=== PATIENT | female | born 1930 | race Caucasian/White ===

== ENCOUNTER 2018-11-09 14:06 | Emergency (ER) | payer OTHER ==
[2018-11-09] MEDS ORDERED: D50W 25 GM/50 ML SYRINGE IV ONE (14:37)
[2018-11-09 15:00] LABS: Absolute Lymphocytes (CBC) 1.5 K/uL (0.7-4.9); Absolute Monocytes 0.5 K/uL (0.1-1.3); Absolute Neutrophil 4.4 K/uL (1.8-8.0); Basophils % 0.4 % (0-1.3); Eosinophils % 2.1 % (0-4.4); Hematocrit 36.4 % (36.0-45.0); Lymphocytes % 23.1 % (15.3-44.8); MPV 8.1 fL (7.6-11.3); Monocytes % 7.2 % (3.3-12.3); RBC Red Blood Cell Count 4.23 M/uL (3.86-4.86)
[2018-11-09 15:11] LABS: Potassium 4.5 mmol/L (3.5-5.1)
--- NOTE | 2018-11-09 16:08 | RAD REPORT ---
EXAM DESCRIPTION: CT - Head C Spine Cap W Con - 11/09/2018 3:47 pm CLINICAL HISTORY: Trauma, head and neck injury. Chest, abdomen and pelvis pain. left flank echymosis COMPARISON: Abdomen Pelvis W Contrast dated 12/08/2017; Head Brain Wo Cont dated 12/08/2017; HEAD BR AIN W O CONTRAST dated 12/16/2011; HEAD BRAIN W O CONTRAST dated 08/24/2010 TECHNIQUE: CT head without contrast. CT cervical spine without contrast with coronal and sagittal reformatted images. CT chest, abdomen and pelvis with IV contrast (approximately 100 mL nonionic IV contrast) with bailey l and sagittal reformatted images of the spine. All CT scans are performed using dose optimization technique as appropriate and may include automated exposure control or mA/KV adjustment according to patient size. FINDINGS: CT HEAD WITHOUT CONTRAST: No intracranial hemorrhage, hydrocephalus or extra-axial fluid collection. Moderate generalized brain atrophy is present with mild periventricular and deep white matter chronic microvascular ischemic ch anges. No areas of brain edema or midline shift. The paranasal sinuses and mastoids are clear. The calvarium is intact. CT CERVICAL SPINE WITHOUT CONTRAST: No fracture or subluxation. Multilevel degenerative spondylosis of cervical spine is present. The pre vertebral soft tissues are normal in thickness. CT CHEST, ABDOMEN, PELVIS WITH CONTRAST: The lungs are clear.Linear subsegmental atelectasis is present in both posterior lung bases, greater on the left.No pneumothorax or pericardial/pleural fluid. No evidence of intra-abdominal visceral injury, free fluid or free air. Fatty liver. Moderate compression deformity affects the L1 vertebral body, age undetermined. Fracture of the left eighth rib laterally is noted, nondisplaced. Soft tissue swelling is seen in the superficial tissues of the left flank. IMPRESSION: Nondisplaced left lateral eighth rib fracture. Soft tissue swelling and fat stranding se en left flank region. Moderate L1 compression fracture is noted, age undetermined.
--- NOTE | 2018-11-09 16:39 | ER ---
Nurse's Notes [facility] Name: Eileen Carrero Age: 88 yrs Sex: Female : 1930 Arrival Date: 11/09/2018 Time: 14:08 Bed 20 Private MD: Diagnosis: Fracture of one rib, left side;hematoma of left flank Presentation: 11/09 14:08 Presenting complaint: EMS states: was called by pt herself for a fall from a standing hj position and was on the floor for an hour before she was able to call EMS; complaints of lower back pain; on scene, EMS states, pt was Z\T\O x 4, diaphoretic, pale, cold and clammy; no BGL taken, pt is non diabetic; BP- 145/85; EKG showed 1st degree block; presence of L UA bruising from previous fall; denies hitting head or LOC;. Transition of care: patient was not received from another setting of care. Onset of symptoms was November 09, 2018. Risk Assessment: Do you want to hurt yourself or someone else? Patient reports no desire to harm self or others. Initial Sepsis Screen: Does the patient meet any 2 criteria? No. Patient's initial sepsis screen is negative. Does the patient have a suspected source of infection? No. Patient's initial sepsis screen is negative. Care prior to arrival: None. 14:08 Method Of Arrival: EMS: Opp[facility] 14:08 Acuity: LEE 4 hj 14:16 Mechanism of Injury: Fall from standing position. Trauma event details: Injury occurred hj in the [facility], Injury occurred: at home. Injury occurred: November 09, 2018. Triage Assessment: 14:15 General: Appears in no apparent distress. uncomfortable, Behavior is calm, cooperative, hj appropriate for age. Pain: Complains of pain in back. Trauma Activation: Not Applicable Physician: ED Physician; Name: ; Notified At: ; Arrived At: Physician: General Surgeon; Name: ; Notified At: ; Arrived At: Physician: Radiology; Name: ; Notified At: ; Arrived At: Physician: Respiratory; Name: ; Notified At: ; Arrived At: Physician: Lab; Name: ; Notified At: ; Arrived At: Historical: - Allergies: 14:14 Sulfa (Sulfonamide Antibiotics); hj 14:14 Celecoxib; hj - Home Meds: 14:14 aspirin 81 mg Oral chew 1 tab once daily [Active]; estradiol Oral [Active]; Nexium Oral hj [Active]; Potassium Chloride Oral [Active]; Synthroid Oral [Active]; Tramadol Oral [Active]; - PMHx: 14:14 Hypothyroidism; hj - PSHx: 14:14 Unable to obtain; hj - Immunization history:: Adult Immunizations unknown. - Social history:: Smoking status: Patient/guardian denies using tobacco, Patient/guardian denies using alcohol. - Immunization history: Last tetanus immunization: - up to date. - Ebola Screening: : Patient negative for fever greater than or equal to 101.5 degrees Fahrenheit, and additional compatible Ebola Virus Disease symptoms Patient denies exposure to infectious person Patient denies travel to an Ebola-affected area in the 21 days before illness onset. Screenin:15 Abuse screen: Denies threats or abuse. Denies injuries from another. Nutritional hj screening: No deficits noted. Tuberculosis screening: No symptoms or risk factors identified. Fall Risk Fall in past 12 months (25 points). Primary Survey: 14:22 NO uncontrolled hemorrhage observed. A: The patient is alert. Airway: patent, No hj supplemental oxygen in use on arrival. Oral cavity: clear, Trachea midline. Breathing/Chest: Respiratory pattern: regular, Respiratory effort: spontaneous, unlabored, Breath sounds: clear, Chest inspection: symmetrical rise and fall of the chest. Circulation: Cardiac rhythm: sinus rhythm Heart tones present. Pulses: palpable right radial artery, right posterior tibial artery, left radial artery and left posterior tibial artery. Skin color: brusing on the back and lateral abdomen, Skin temperature: warm, dry. Disability Alert. Exposure/Environment: All clothing and personal items were removed. Forensic evidence collection is not deemed to be indicated at this time. Items placed in patient belonging bag. There is no evidence of uncontrolled external bleeding. No obvious injuries are noted at this time. A warming method has been applied: A warm blanket has been provided to the patient. 14:31 Reassessment Airway Airway Patent Oxygen No O2 Oral cavity Clear +Gag reflex Trachea hj Midline Breathing/Chest Circulation Heart rhythm Sinus rhythm Heart tones Present Pulses Palpable Color [place] Temperature Warm Disability Alert. Secondary Survey: 14:30 HEENT: No deficits noted. Gastrointestinal: Abdomen is Bowel sounds present in all hj quadrants. Palpation. : No signs and/or symptoms were reported regarding the genitourinary system. Musculoskeletal: No signs and/or symptoms reported regarding the musculoskeletal system. Assessment: 14:33 Reassessment: called pt's daughter- Deirdre Montoya, [phone]; left a voicemail to call back ED;. 14:59 Reassessment: Spoke with pt's daughter, informed about the current situation. Daughter pc1 provided Pt's son phone number, [phone] [House]/ [phone] [Cell]. 16:42 Reassessment: pt to call someone to pick her up;. hj 17:35 Reassessment: notified [facility] of need for wheelchair van transport back to [facility]. 17:44 Reassessment: Spoke with daughter, informed of discharge plan. Informed that the pt's pc1 cell phone was misplaced within ambulance. Informed daughter that the EMS would return the pt's cell phone to the residence. Informed daughter about discharge prescriptions. Denies any further questions, displayed understanding via speech back. 17:50 Reassessment: pt was educated on use of incentive spirometer;. Vital Signs: 14:16 BP 138 / 65; Resp 18; Pulse Ox 100% on R/A; Weight 90.72 kg; Height 5 ft. 7 in. (170.18 hj cm); 16:30 BP 128 / 67; Pulse 60; Resp 18; Pulse Ox 100% on R/A; hj 17:52 BP 130 / 66; Pulse 62; Resp 18; Pulse Ox 100% on R/A; hj 14:16 Body Mass Index 31.32 (90.72 kg, 170.18 cm) [place] Coma Score: 14:16 Eye Response: spontaneous(4). Verbal Response: oriented(5). Motor Response: obeys hj commands(6). Total: 15. Trauma Score (Adult): 14:16 Eye Response: spontaneous(1); Verbal Response: oriented(1); Motor Response: obeys hj commands(2); Systolic BP: > 89 mm Hg(4); Respiratory Rate: 10 to 29 per min(4); [place] Score: 15; Trauma Score: 12 ED Course: 14:08 Patient arrived in ED. hj 14:12 Triage completed. hj 14:15 Arm band placed on right wrist. hj 14:17 Rik Olivo MD is Attending Physician. ps1 14:24 Erlin Golden RN is Primary Nurse. hj 14:31 Inserted saline lock: 22 gauge in right forearm, using aseptic technique. Patient hj maintains SpO2 saturation greater than 95% on room air. 14:32 Patient has correct armband on for positive identification. Placed in gown. Bed in low hj position. Call light in reach. Side rails up X2. 14:33 Thermoregulation: warm blanket given to patient. hj 15:09 Radiology exam delayed due to lab results not completed at this time. (BUN/Creatinine). vr 15:[address] nj 15:36 CT completed. Patient tolerated procedure well. Patient moved back from CT. vm2 15:47 CT Traumagram (Head C Spine CAP W Con) In Process Unspecified. EDMS 17:50 No provider procedures requiring assistance completed. IV discontinued, intact, hj bleeding controlled, No redness/swelling at site. Pressure dressing applied. Administered Medications: 14:24 Drug: D50W 25 ml Route: IVP; Site: right forearm; hj 14:41 Follow up: Response: No adverse reaction hj Point of Care Testing: Blood Glucose: 14:16 Blood Glucose: 54 mg/dL; hj 15:15 Blood Glucose: 187 mg/dL; pc1 Ranges: Intake: 17:53 PO: 100ml (Water); Total: 100ml. hj Output: 17:53 Urine: 200ml (Voided); Total: 200ml. hj Outcome: 16:38 Discharge ordered by . ps1 17:51 Attestation : i agree with notes of SN Loki. hj 17:51 Discharged to home ambulatory, via ambulance. 17:51 Condition: stable 17:51 Discharge instructions given to patient, Instructed on discharge instructions, follow up and referral plans. medication usage, Demonstrated understanding of instructions, follow-up care, medications, Prescriptions given X 2. 17:53 Patient's length of stay in the Emergency Department was greater than 2 hours. hj 18:01 Patient left the ED. hj Signatures: Dispatcher [employer] EDMS Laurence Steele RN RN iw Davis, Victoria vr Erlin Golden RN RN hj Jordan, Nathan nj McGuire, Victoria 2 Olivo, Rik, MD MD ps1 Anglin, Sanchez pc1
--- NOTE | 2018-11-09 16:39 | EDPHYS ---
Physician Documentation [facility] Name: Eileen Carrero Age: 88 yrs Sex: Female : 1930 Arrival Date: 11/09/2018 Time: 14:08 Bed 20 Private MD: ED Physician Rik Olivo Historical: - Allergies: 11/09 14:14 Sulfa (Sulfonamide Antibiotics); hj 14:14 Celecoxib; hj - Home Meds: 14:14 aspirin 81 mg Oral chew 1 tab once daily [Active]; estradiol Oral [Active]; Nexium Oral hj [Active]; Potassium Chloride Oral [Active]; Synthroid Oral [Active]; Tramadol Oral [Active]; - PMHx: 14:14 Hypothyroidism; hj - PSHx: 14:14 Unable to obtain; hj - Immunization history:: Adult Immunizations unknown. - Social history:: Smoking status: Patient/guardian denies using tobacco, Patient/guardian denies using alcohol. - Immunization history: Last tetanus immunization: - up to date. - Ebola Screening: : Patient negative for fever greater than or equal to 101.5 degrees Fahrenheit, and additional compatible Ebola Virus Disease symptoms Patient denies exposure to infectious person Patient denies travel to an Ebola-affected area in the 21 days before illness onset. Vital Signs: 14:16 BP 138 / 65; Resp 18; Pulse Ox 100% on R/A; Weight 90.72 kg; Height 5 ft. 7 in. (170.18 hj cm); 16:30 BP 128 / 67; Pulse 60; Resp 18; Pulse Ox 100% on R/A; hj 17:52 BP 130 / 66; Pulse 62; Resp 18; Pulse Ox 100% on R/A; hj 14:16 Body Mass Index 31.32 (90.72 kg, 170.18 cm) hj Abe Coma Score: 14:16 Eye Response: spontaneous(4). Verbal Response: oriented(5). Motor Response: obeys hj commands(6). Total: 15. Trauma Score (Adult): 14:16 Eye Response: spontaneous(1); Verbal Response: oriented(1); Motor Response: obeys hj commands(2); Systolic BP: > 89 mm Hg(4); Respiratory Rate: 10 to 29 per min(4); Abe Score: 15; Trauma Score: 12 MDM: 14:23 Patient medically screened. [facility] 11/09 14:22 Order name: Basic Metabolic Panel; Complete Time: 15:12 [facility] 11/09 14:22 Order name: CBC with Diff; Complete Time: 15:08 [facility] 11/09 14:22 Order name: CT Traumagram (Head C Spine CAP W Con); Complete Time: 16:13 [facility] 11/09 14:22 Order name: Creatinine for Radiology; Complete Time: 15:25 [facility] 11/09 14:22 Order name: Type And Screen; Complete Time: 16:01 [facility] 11/09 17:49 Order name: INCENTIVE SPIROMETRY 11/09 14:22 Order name: Labs collected and sent; Complete Time: 14:41 ps1 Administered Medications: 14:24 Drug: D50W 25 ml Route: IVP; Site: right forearm; 14:41 Follow up: Response: No adverse reaction Point of Care Testing: Blood Glucose: 14:16 Blood Glucose: 54 mg/dL; 15:15 Blood Glucose: 187 mg/dL; pc1 Ranges: Critical Glucose Levels:Adult <50 mg/dl or >400 mg/dl <40 mg/dl or >180 mg/dl Disposition: 11/09/18 16:38 Discharged to Home. Impression: Fracture of one rib, left side, hematoma of left flank. - Condition is Stable. - Discharge Instructions: Rib Fracture, [id number]. - Prescriptions for Anaprox DS 550 mg Oral Tablet - take 1 tablet by ORAL route every 12 hours As needed; 20 tablet. Robaxin 500 mg Oral Tablet - take 2 tablet by ORAL route every 6 hours As needed; 40 tablet. - Medication Reconciliation Form, Thank You Letter, Antibiotic Education, Prescription Opioid Use form. - Follow up: Private Physician; When: As needed; Reason: Recheck today's complaints. Follow up: Emergency Department; When: As needed; Reason: Worsening of condition. - Problem is new. - Symptoms are unchanged. Addendum: 11/24/2018 09:12 Addendum: 88 y/o F presenting w FFSH. Patient states that she has left rib pain. p s1 Patient states she tripped and fell. Pain rated as moderate. No obvious deformity but has ecchymosis of the flank. ROS: No fever, chills, NVD, CP, SOB, ABD pain. Has left rib pain. No leg pain or back pain. PHY: NCAT, PERRL, EOMi, CTAB, RRR, Abd SNT. Left flank pain with palpation and ecchymosis. Pain over ribs. Normal extremities. POC: Traumagram. Pain control. RIb fx on CT. Incentive Spirometry. Home with anaprox and robaxin. Stable. . Signatures: Dispatcher [employer] EDMS Erlin Golden RN RN hj Rik Olivo MD MD ps1 Corrections: (The following items were deleted from the chart) 11/09 18:01 16:38 11/09/2018 16:38 Discharged to Home. Impression: Fracture of one rib, left side; hj hematoma of left flank. Condition is Stable. Forms are Medication Reconciliation Form, Thank You Letter, Antibiotic Education, Prescription Opioid Use. Follow up: Private Physician; When: As needed; Reason: Recheck today's complaints. Follow up: Emergency Department; When: As needed; Reason: Worsening of condition. Problem is new. Symptoms are unchanged. ps1 11/24 09:20 09:12 Addendum: 88 y/o F presenting w FFSH. Patient states that she has left rib pain. ps1 . ps1
[2018-11-09 18:55] VITALS: O2SAT 100
[2018-11-09 18:57] VITALS: BP 130/66
== END 2018-11-09 18:01 | disposition home or self-care (01) ==
LOC: ER 14:06
DX: S22.32XA Fracture of one rib, left side, initial encounter for closed fracture (principal); S30.1XXA Contusion of abdominal wall, initial encounter; W01.0XXA Fall on same level from slipping, tripping and stumbling without subsequent striking against object, initial encounter; Y93.9 Activity, unspecified; Y92.9 Unspecified place or not applicable; E03.9 Hypothyroidism, unspecified; Z79.82 Long term (current) use of aspirin; Z88.1 Allergy status to other antibiotic agents; Z88.2 Allergy status to sulfonamides
CPT/HCPCS: 85025; 80048; 36415; 86900; 86850; 86901; 82962 ×2; 70450; 72125; 71260; 74177; 96374; 99285; Q9967

== ENCOUNTER 2018-12-18 14:42 | Emergency (ER) | payer OTHER ==
--- NOTE | 2018-12-18 15:41 | RAD REPORT ---
EXAM DESCRIPTION: RAD - Ankle Right 3 View - 12/18/2018 3:06 pm CLINICAL HISTORY: fall, foot pain COMPARISON: None FINDINGS: Right ankle and right foot -multiple projections are submitted Soft tissue swelling is seen along the lateral margin of the foot and ankle. No fractures appreciated .
--- NOTE | 2018-12-18 16:35 | RAD REPORT ---
EXAM DESCRIPTION: US - Extremity Venous Uni Ltd - 12/18/2018 4:24 pm CLINICAL HISTORY: SWELLING Leg swelling and edema. COMPARISON: EXT VENOUS UNI LTD dated 05/30/2009 FINDINGS: Right lower extremity venous system was interrogated with Doppler technique. Normal flow, compressibility and augmentation was noted. There is no DVT present. IMPRESSION: No evidence of right lower extremity deep venous thrombosis.
--- NOTE | 2018-12-18 17:05 | EDPHYS ---
Physician Documentation [facility] Name: Eileen Carrero Age: 88 yrs Sex: Female : 1930 Arrival Date: 12/18/2018 Time: 14:08 Bed 13 Private MD: ED Physician Dom Koo HPI: 12/18 14:33 This 88 yrs old Female presents to ER via EMS with complaints of Foot Pain. jmm 14:33 The patient presents with an injury, pain. Onset: The symptoms/episode began/occurred jmm gradually, 2 day(s) ago. This is an 88 year old female with a history of hlp, depression, htn, that presents to the ED with complaints of pain to her right lower leg, foot and ankle. Patient states she fell 1 month ago on her left side. Denies other known injury. . Historical: - Allergies: 14:15 Celecoxib; ph 14:15 Sulfa (Sulfonamide Antibiotics); ph 14:15 Tape; ph - Home Meds: 18:40 aspirin 81 mg Oral chew 1 tab once daily [Active]; estradiol Oral [Active]; Nexium Oral ph [Active]; Potassium Chloride Oral [Active]; Synthroid Oral [Active]; Tramadol Oral [Active]; - PMHx: 14:15 Hypothyroidism; Depression; Hyperlipidemia; Hypertension; Crohn's; Arthritis; ph - PSHx: 18:40 Knee surgery; ph - Immunization history:: Adult Immunizations unknown. - Social history:: Smoking status: Patient/guardian denies using tobacco. - Ebola Screening: : No symptoms or risks identified at this time. ROS: 14:33 Constitutional: Negative for fever, chills, and weight loss, Cardiovascular: Negative jmm for chest pain, palpitations, and edema, Respiratory: Negative for shortness of breath, cough, wheezing, and pleuritic chest pain. 14:33 MS/extremity: Positive for pain, swelling. 14:33 All other systems are negative. Exam: 14:33 Constitutional: This is a well developed, well nourished patient who is awake, alert, jmm and in no acute distress. Head/Face: atraumatic. Eyes: EOMI, no conjunctival erythema appreciated ENT: Moist Mucus Membranes Neck: Trachea midline, Supple Cardiovascular: Regular rate and rhythm. No edema appreciated Respiratory: Normal respirations, no respiratory distress appreciated Abdomen/GI: Non distended, soft 14:33 Musculoskeletal/extremity: swelling and pain noted to the right lateral ankle and at the base of the right fifth metatarsal, full dorsalis pulse, NVI. 14:33 Skin: Appearance: Color: normal in color. 14:33 Neuro: Orientation: is normal, Mentation: is normal, Memory: is normal. 14:33 Psych: Behavior/mood is pleasant, cooperative. Vital Signs: 14:12 BP 103 / 78; Pulse 70; Resp 18; Temp 97.7; Pulse Ox 97% on R/A; Weight 92.99 kg; Height ph 5 ft. 7 in. (170.18 cm); Pain 5/10; 15:00 BP 124 / 68; Pulse 68; Resp 18; Pulse Ox 98% on R/A; ph 16:15 BP 133 / 67; Pulse 71; Resp 16; Pulse Ox 98% on R/A; ph 18:36 BP 134 / 66; Pulse 65; Resp 18; Pulse Ox 100% on R/A; ph 19:05 BP 110 / 81; Pulse 73; Resp 16; Pulse Ox 98% on R/A; jb4 20:00 BP 134 / 70; Pulse 65; Resp 16; Pulse Ox 100% on R/A; jb4 20:30 BP 148 / 57; Pulse 66; Resp 16; Pulse Ox 100% on R/A; jb4 14:12 Body Mass Index 32.11 (92.99 kg, 170.18 cm) ph MDM: 14:33 Patient medically screened. [facility] 17:02 Data reviewed: vital signs, nurses notes. Counseling: I had a detailed discussion with stacey the patient and/or guardian regarding: the historical points, exam findings, and any diagnostic results supporting the discharge/admit diagnosis, radiology results, the need for outpatient follow up, to return to the emergency department if symptoms worsen or persist or if there are any questions or concerns that arise at home. ED course: I discussed the patient with her daughter whom stated noticing swelling after a rehabilitation session due to the previous fall injury. Patient may be favoring the left side. Symptoms appear consistent with ankle sprain. patient will be given follow up with ortho for further evaluation. . 12/18 14:34 Order name: Foot Right 3 View XRAY [facility] 12/18 14:34 Order name: Ankle Right 3 View XRAY; Complete Time: 15:44 [facility] 12/18 15:45 Order name: US Extremity Venous Unilateral Ltd; Complete Time: 17:02 [facility] 12/18 17:02 Order name: [place] wrap-joint; Complete Time: 20:13 [facility] Administered Medications: 18:32 Not Given (Other Intervention Used): [place] 5 mg-325 mg 1 tabs PO once ph 18:32 Drug: morphine 2 mg Route: IVP; Site: right forearm; ph 19:32 Follow up: Response: No adverse reaction; Pain is decreased ph 18:32 Drug: Zofran 4 mg Route: IVP; Site: right forearm; ph 19:32 Follow up: Response: No adverse reaction ph Disposition: 12/18/18 17:05 Discharged to Home. Impression: Sprain of ankle. - Condition is Stable. - Discharge Instructions: Ankle Sprain. - Prescriptions for Tylenol- Codeine #3 300-30 mg Oral Tablet - take 1 tablet by ORAL route every 6 hours As needed; 12 tablet. - Medication Reconciliation Form, Thank You Letter, Antibiotic Education, Prescription Opioid Use form. - Follow up: Private Physician; When: 2 - 3 days; Reason: Recheck today's complaints, Continuance of care, Re-evaluation by your physician. Follow up: José Miguel Lal MD; When: 1 - 2 days; Reason: Recheck today's complaints, Continuance of care, Re-evaluation by your physician. Addendum: 12/19/2018 22:56 Co-signature as Attending Physician, Dom Koo MD. r n Signatures: Dispatcher [employer] EDMS Gautam Sorensen PA PA [facility] Dom Koo MD MD rn Hall, Patricia, RN RN ph Bryson, James, RN RN jb4 Corrections: (The following items were deleted from the chart) 12/18 20:51 17:05 12/18/2018 17:05 Discharged to Home. Impression: Sprain of ankle. Condition is jb4 Stable. Forms are Medication Reconciliation Form, Thank You Letter, Antibiotic Education, Prescription Opioid Use. Follow up: Private Physician; When: 2 - 3 days; Reason: Recheck today's complaints, Continuance of care, Re-evaluation by your physician. Follow up: Dr. José Miguel Lal; When: 1 - 2 days; Reason: Recheck today's complaints, Continuance of care, Re-evaluation by your physician. stacey
--- NOTE | 2018-12-18 17:05 | ER ---
Nurse's Notes [facility] Name: Eileen Carrero Age: 88 yrs Sex: Female : 1930 Arrival Date: 12/18/2018 Time: 14:08 Bed 13 Private MD: Diagnosis: Sprain of ankle Presentation: 12/18 14:08 Presenting complaint: EMS states: C/O pain and swelling to R ankle, reports falling on ph November 14, states, " I fell mainly on my L side and I got all of that checked out. I had a little pain in my R ankle after the fall but didn't get it checked out then." Pt reports that pain intensified starting Fri and that she is unable to bear weight on R foot. 1 gram IV Tylenol given, pain decreased from 10/10 down to 5/10. Transition of care: patient was not received from another setting of care. Onset of symptoms was December 18, 2018. Risk Assessment: Do you want to hurt yourself or someone else? Patient reports no desire to harm self or others. Initial Sepsis Screen: Does the patient meet any 2 criteria? No. Patient's initial sepsis screen is negative. Does the patient have a suspected source of infection? No. Patient's initial sepsis screen is negative. Care prior to arrival: Medication(s) given: Tylenol, 1000 mg, IVP IV initiated. 20 GA, in the right forearm. 14:08 Method Of Arrival: EMS: [facility] ph 14:08 Acuity: LEE 4 ph Historical: - Allergies: 14:15 Celecoxib; ph 14:15 Sulfa (Sulfonamide Antibiotics); ph 14:15 Tape; ph - Home Meds: 18:40 aspirin 81 mg Oral chew 1 tab once daily [Active]; estradiol Oral [Active]; Nexium Oral ph [Active]; Potassium Chloride Oral [Active]; Synthroid Oral [Active]; Tramadol Oral [Active]; - PMHx: 14:15 Hypothyroidism; Depression; Hyperlipidemia; Hypertension; Crohn's; Arthritis; ph - PSHx: 18:40 Knee surgery; ph - Immunization history:: Adult Immunizations unknown. - Social history:: Smoking status: Patient/guardian denies using tobacco. - Ebola Screening: : No symptoms or risks identified at this time. Screenin:32 Abuse screen: Denies threats or abuse. Denies injuries from another. Nutritional ph screening: No deficits noted. Tuberculosis screening: No symptoms or risk factors identified. Fall Risk Fall in past 12 months (25 points). No secondary diagnosis (0 pts). No IV (0 pts). Ambulatory Aid- None/Bed Rest/Nurse Assist (0 pts). Gait- Impaired (20 pts.). Mental Status- Oriented to own ability (0 pts). Total Vogel Fall Scale indicates High Risk Score (45 or more points). Fall prevention measures have been instituted. Side Rails Up X 2 Frequent Obs/Assessments Occuring As available patient and family educated on Fall Prevention Program and Strategies. Assessment: 14:30 General: Appears in no apparent distress. comfortable, obese, well groomed, Behavior is ph calm, cooperative, appropriate for age, Denies fever, feeling ill. Pain: Complains of pain in right ankle. Neuro: Level of Consciousness is awake, alert, obeys commands, Oriented to person, place, time, situation. Cardiovascular: Capillary refill < 3 seconds in bilateral fingers toes Patient's skin is warm and dry. Pulses are palpable in right dorsalis pedis artery and left dorsalis pedis artery. Respiratory: Airway is patent Respiratory effort is even, unlabored, Respiratory pattern is regular, symmetrical. GI: No signs and/or symptoms were reported involving the gastrointestinal system. Derm: Skin is intact, Skin is pink, warm \\T\\ dry. Musculoskeletal: Circulation, motion, and sensation intact. Swelling present in right ankle. 16:34 Reassessment: Patient appears in no apparent distress at this time. Patient and/or ph family updated on plan of care and expected duration. Pain level reassessed. Patient is alert, oriented x 3, equal unlabored respirations, skin warm/dry/pink. ERP at bedside to speak w/ pt. 17:30 Reassessment: Patient appears in no apparent distress at this time. Patient and/or ph family updated on plan of care and expected duration. Pain level reassessed. Patient is alert, oriented x 3, equal unlabored respirations, skin warm/dry/pink. Pt resting quietly at this time, spoke to daughter on phone, states, " I am coming from [place] now but I will be there to get her." D/C pending ride home, will continue to monitor. 18:33 Reassessment: Patient appears in no apparent distress at this time. Patient and/or ph family updated on plan of care and expected duration. Pain level reassessed. Patient is alert, oriented x 3, equal unlabored respirations, skin warm/dry/pink. Pt c/o "pain all over" states, " This bed is just so uncomfortable." Rates pain 10/ Daughter on phone states that she will be her at approx 2000 to bean picker pt, ERP notified of pain level, see MAR. 18:50 Reassessment: Patient appears in no apparent distress at this time. Patient and/or ph family updated on plan of care and expected duration. Pain level reassessed. Pt reports that pain hasimprovedto5/10 after IV pain medication, assisted pt to bedside commode. 19:05 Reassessment: Patient appears in no apparent distress at this time. Patient and/or jb4 family updated on plan of care and expected duration. Pain level reassessed. Patient is alert, oriented x 3, equal unlabored respirations, skin warm/dry/pink. 20:05 Reassessment: Patient appears in no apparent distress at this time. Patient and/or jb4 family updated on plan of care and expected duration. Pain level reassessed. PT is resting with eyes closed, respirations are even and unlabored. 20:50 Reassessment: Patient appears in no apparent distress at this time. Patient and/or jb4 family updated on plan of care and expected duration. Pain level reassessed. Patient is alert, oriented x 3, equal unlabored respirations, skin warm/dry/pink. PT left ED via wheelchair, left with daughter, daughter verbalized understanding of d/c and follow up instructions. Denies questions or concerns. Vital Signs: 14:12 BP 103 / 78; Pulse 70; Resp 18; Temp 97.7; Pulse Ox 97% on R/A; Weight 92.99 kg; Height ph 5 ft. 7 in. (170.18 cm); Pain 5/10; 15:00 BP 124 / 68; Pulse 68; Resp 18; Pulse Ox 98% on R/A; ph 16:15 BP 133 / 67; Pulse 71; Resp 16; Pulse Ox 98% on R/A; ph 18:36 BP 134 / 66; Pulse 65; Resp 18; Pulse Ox 100% on R/A; ph 19:05 BP 110 / 81; Pulse 73; Resp 16; Pulse Ox 98% on R/A; jb4 20:00 BP 134 / 70; Pulse 65; Resp 16; Pulse Ox 100% on R/A; jb4 20:30 BP 148 / 57; Pulse 66; Resp 16; Pulse Ox 100% on R/A; jb4 14:12 Body Mass Index 32.11 (92.99 kg, 170.18 cm) ph ED Course: 14:08 Patient arrived in ED. ph 14:10 Gautam Sorensen PA is PHCP. jmm 14:10 Dom Koo MD is Attending Physician. jmm 14:12 Triage completed. ph 14:15 Arm band placed on Patient placed in an exam room, on a stretcher, on pulse oximetry. ph 14:30 Patient has correct armband on for positive identification. Placed in gown. Bed in low ph position. Call light in reach. Side rails up X2. pvc monitor on. Pulse ox on. NIBP on. Door closed. Noise minimized. Warm blanket given. 15:06 Foot Right 3 View XRAY In Process Unspecified. EDMS 15:06 Ankle Right 3 View XRAY In Process Unspecified. EDMS 16:07 Tracee Schaefer, RN is Primary Nurse. ph 16:24 US Extremity Venous Unilateral Ltd In Process Unspecified. EDMS 16:35 No provider procedures requiring assistance completed. Patient did not have IV access ph during this emergency room visit. 17:04 José Miguel Lal MD is Referral Physician. jm Administered Medications: 18:32 Not Given (Other Intervention Used): [place] 5 mg-325 mg 1 tabs PO once ph 18:32 Drug: morphine 2 mg Route: IVP; Site: right forearm; ph 19:32 Follow up: Response: No adverse reaction; Pain is decreased ph 18:32 Drug: Zofran 4 mg Route: IVP; Site: right forearm; ph 19:32 Follow up: Response: No adverse reaction ph Outcome: 17:05 Discharge ordered by . jm 20:50 Discharged to home via wheelchair, with family. [facility] 20:50 Condition: stable 20:50 Discharge instructions given to patient, family, Instructed on discharge instructions, follow up and referral plans. medication usage, Demonstrated understanding of instructions, follow-up care, medications, Prescriptions given X 1. 20:51 Patient left the ED. jb4 Signatures: Dispatcher [employer] EDMS Gautam Sorensen PA PA jmm Hall, Patricia RN RN Jamar Escalona RN RN jb4
[2018-12-18] MEDS ORDERED: MORPHINE 2 MG/ML SYR ONE (18:27)
[2018-12-18] MEDS ORDERED: ONDANSETRON 4 MG/2 ML VIAL ONE (18:27)
[2018-12-18 21:25] VITALS: O2SAT 100
[2018-12-18 21:27] VITALS: BP 148/57
--- NOTE | 2018-12-21 12:40 | RAD REPORT ---
EXAM DESCRIPTION: RAD - Foot Right 3 View - 12/18/2018 3:06 pm CLINICAL HISTORY: Fall, foot pain COMPARISON: None FINDINGS: Right ankle and right foot -multiple projections are submitted Soft tissue swelling is seen along the lateral margin of the foot and ankle. No fractures appreciated .
== END 2018-12-18 20:51 | disposition home or self-care (01) ==
LOC: ER 14:42
DX: S93.401A Sprain of unspecified ligament of right ankle, initial encounter (principal); W19.XXXA Unspecified fall, initial encounter; E03.9 Hypothyroidism, unspecified; E78.5 Hyperlipidemia, unspecified; I10 Essential (primary) hypertension; F32.9 Major depressive disorder, single episode, unspecified; K50.90 Crohn's disease, unspecified, without complications; Z88.6 Allergy status to analgesic agent; Z88.2 Allergy status to sulfonamides; Z79.82 Long term (current) use of aspirin
CPT/HCPCS: 73630; 73610; 93971; 96375; 96374; 99284; J2270; J2405

== ENCOUNTER 2019-10-26 12:47 | Inpatient (IN) | payer OTHER ==
--- OUTSIDE RECORDS SUMMARY | 2019-10-26 12:49 | XMS REPORT | Summary of Care ---
:[address] [facility] Address [address] [place] [address] Care Team Providers Name Role Phone Juan R Bartlett Primary Care Provider Reason for Visit Auth/Cert Status Reason Specialty Diagnoses / Referred By Referred To Procedures Contact Contact Echocardiograph Diagnoses Shortness of breath R06.02 [facility] Echo Cardio Procedures NM CV STRS TST XERS&/OR RX CONT ECG W/O I&R NM CARDIAC STRESS TST,TRACING ONLY NM CARDIAC STRESS TST,INTERP/REPT ONLY Lab-Pt [address] [place] [address] Encounter Details Date Type Department Care Team Description 03/30/2019 Hospital Encounter [facility] Hernesto Badillo MD [address] [place] [address] [facility] Cardio Echo [address] [place] [address] Allergies Active Allergy Reactions Severity Noted Date Comments Sulfa (Sulfonamide Antibiotics) Unknown - See comments 02/25/2019 documented as of this encounter (statuses as of 03/31/2019) Medications Medication Sig Dispensed Refills Start Date End Date Status donepezil 10 mg tablet Take 10 mg by 0 Active mouth 2 (two) times daily. esomeprazole 40 mg Take 40 mg by 0 Active capsule mouth 2 (two) times daily. levothyroxine 88 mcg Take 88 mcg by 0 Active tablet mouth every morning. buPROPion XL Take 300 mg by 0 Active (WELLBUTRIN XL) 300 mg mouth daily. 24 hr tablet ezetimibe 10 mg tablet Take 10 mg by 0 Active mouth daily. furosemide 20 mg tablet Take 20 mg by 0 Active mouth daily. traMADOL 50 mg tablet Take 50 mg by 0 Active mouth every 6 (six) hours as needed. KCL 10 mEq tablet Take 10 mEq by 0 Active mouth 2 (two) times daily. loratadine 10 mg tablet Take 10 mg by 0 Active mouth daily. fluticasone propionate Use in each 0 Active 50 mcg/actuation nasal nostril daily. spray amitriptyline 100 mg Take 50 mg by 0 Active tablet mouth at bedtime. mesalamine 1.2 gram EC Take 2 tablets by 0 03/02/2019 Active tablet mouth daily with breakfast. telmisartan 40 mg Take 1 tablet by 0 03/02/2019 Active tablet mouth daily. documented as of this encounter (statuses as of 03/31/2019) Active Problems Not on filedocumented as of this encounter (statuses as of 03/31/2019) Social History Tobacco Use Types Packs/Day Years Used Date Never Smoker Smokeless Tobacco: Never Used Alcohol Use Drinks/Week oz/Week Comments Never Alcohol Habits Answer Date Recorded How often do you have a drink containing alcohol? Never 02/25/2019 How many drinks containing alcohol do you have on a typical Not asked day when you are drinking? How often do you have six or more drinks on one occasion? Not asked Sex Assigned at Date Recorded Not on file Job Start Date Occupation Industry Not on file Not on file Not on file Travel History Travel Start Travel End No recent travel history available. documented as of this encounter Last Filed Vital Signs Not on filedocumented in this encounter Plan of Treatment Date Type Specialty Care Team Description 04/28/2019 Office Visit Cardiology Hernesto Badillo MD [address] [place] [address] [address] [place] [address] [phone] Health Maintenance Due Date Last Done Comments DTaP,Tdap,and Td Vaccines (1 - Tdap) 1949 Zoster Recombinant Vaccine (SHINGRIX) (1 of 2) 1982 Medicare Wellness Visit 1997 Osteoporosis Screening 1997 PNEUMOCOCCAL VACCINES 65+ (1 of 2 - PCV13) 1997 INFLUENZA VACCINE 04/18/2019 documented as of this encounter Results Not on filedocumented in this encounter Administered Medications Medication Order MAR Action Action Date Dose Rate Site Regadenoson (LEXISCAN) injection Given 03/30/2019 11:33 AM CDT 0.4 mg 0.4 mg 0.4 mg, IV Push, ONCE, 1 dose, 03/30/19 at 1145, Routine, crew team member approving Restricted medication: HERNESTO BADILLO documented in this encounter Insurance Payer Benefit Plan / Subscriber ID Effective Phone Address Type Group Dates [facility] [id number] 2017-Pres Medicare HEALTHCARE - HEALTHCARE ent Adv HMO MANAGED DUAL COMPLETE MEDICARE O [facility] MEDICAID OF xxxxxxxxx 2019-Pres [phone] [place] ent [id number] [place] [address] documented as of this encounter
--- OUTSIDE RECORDS SUMMARY | 2019-10-26 12:49 | XMS REPORT | Summary of Care ---
:1930 Author Organization [facility] - Health Address [address] [place] [address] Care Team Providers Name Role Phone Pcp, Patient Does Not Have A Primary Care Provider Encounter Details Date Type Department Care Team Description 03/30/2019 Orders Only [facility] Doctor Unassigned, No [address] [facility] [place] [address] [address] [place] [address] Allergies Active Allergy Reactions Severity Noted Date Comments Sulfa (Sulfonamide Antibiotics) Unknown - See comments 02/25/2019 documented as of this encounter (statuses as of 03/30/2019) Medications Medication Sig Dispensed Refills Start Date [...] as of this encounter (statuses as of 03/30/2019) Active Problems Not on filedocumented as of this encounter (statuses as of 03/30/2019) Social History Tobacco Use Types Packs/Day Years [...] Treatment Date Type Specialty Care Team Description 03/30/2019 Appointment Radiology Roshan Siu MD [address] [place] [address] [phone] 03/30/2019 Appointment Radiology Roshan Siu MD [address] [place] [address] [phone] 03/30/2019 Appointment Radiology Roshan Siu MD [address] [place] [address] 03/30/2019 Appointment Radiology Roshan Siu MD [address] [place] [address] 04/28/2019 Office Visit Cardiology Roshan Siu MD [address] [place] [address] [phone] Health Maintenance Due Date Last Done Comments DTaP,Tdap,and Td Vaccines (1 - Tdap) 1949 Zoster Recombinant Vaccine (SHINGRIX) (1 of 2) 1982 Medicare Wellness Visit 1997 Osteoporosis Screening 1997 PNEUMOCOCCAL VACCINES 65+ (1 of 2 - PCV13) 1997 INFLUENZA VACCINE 04/18/2019 documented as of this encounter Procedures Procedure Name Priority Date/Time Associated Diagnosis Comments ASSIGNMENT OF BENEFITS Routine 03/30/2019 9:06 AM CDT documented in this encounter Results Not on filedocumented in this encounter Insurance Payer Benefit Plan / Subscriber ID Effective Phone Address Type Group Dates [facility] [id number] 2017-Pres Medicare HEALTHCARE - HEALTHCARE ent Adv HMO MANAGED DUAL COMPLETE MEDICARE HMO [facility] MEDICAID OF xxxxxxxxx 2019-Pres [phone] [place] ent [phone] [id number] [place] [address] documented as of this encounter
--- OUTSIDE RECORDS SUMMARY | 2019-10-26 12:49 | XMS REPORT ---
:1930 Author Organization [facility] Address [address] [place] [address] Dr. Alanis [address] [place] [address] Care Team Providers Name Role Phone Unavailable Unavailable Unavailable Problems This patient has no known problems. Allergies, Adverse Reactions, Alerts This patient has no known allergies or adverse reactions. Medications This patient has no known medications.
--- OUTSIDE RECORDS SUMMARY | 2019-10-26 12:50 | XMS REPORT | Summary of Care ---
:1930 Author Organization [facility] Address [address] [place] [address] Care Team Providers Name Role Phone Tri Juan R Yaritza Primary Care Provider Reason for Visit Auth/Cert Status Reason Specialty Diagnoses / Referred By Referred To Procedures Contact Contact Echocardiograph Diagnoses Shortness of breath R06.02 [facility] Echo Cardio Procedures [place] CV STRS TST XERS&/OR RX CONT ECG W/O I&R [place] CARDIAC STRESS TST,TRACING ONLY [place] CARDIAC STRESS TST,INTERP/REPT ONLY Lab-Pt [address] [place] [address] Encounter Details Date Type Department Care Team Description 03/30/2019 Hospital Encounter [facility] Roshan Siu MD Arrived [address] [place] [address] [address] [place] [address] [place] [address] Allergies Active Allergy Reactions Severity Noted Date [...] Care Team Description 04/28/2019 Office Visit Cardiology Roshan Siu MD [address] [place] [address] [address] [place], [place] [phone] Health Maintenance Due Date Last Done Comments DTaP,Tdap,and Td Vaccines (1 - Tdap) 1949 Zoster Recombinant Vaccine (SHINGRIX) (1 of 2) 1982 Medicare Wellness Visit 1997 Osteoporosis Screening 1997 PNEUMOCOCCAL VACCINES 65+ (1 of 2 - PCV13) 1997 INFLUENZA VACCINE 04/18/2019 documented as of this encounter Procedures Procedure Name Priority Date/Time Associated Comments Diagnosis NM MYOCARDIUM Routine 03/30/2019 12:36 PM SOB (shortness of Results for this PERFUSION STRESS AND CDT breath) procedure are in REST the results section. documented in this encounter Results NM MYOCARDIUM PERFUSION STRESS AND REST (03/30/2019 12:36 PM CDT) Specimen Impressions Performed At Impression: PACS/VR/DOSE Normal myocardial perfusion scan with preserved ejection fraction and normal wall thickening. I was present for the stress portion. Narrative Performed At * * * * * * * * ORIGINAL REPORT * * * * * * * * PACS/VR/DOSE Pharmacological myocardial perfusion imaging report Type: Technetium 99 labeled tetrofosmin rest/stress single isotope SPECT imaging with Regadenoson pharmacological stress and gated SPECT imaging. Indication: dyspnea Clinical history: HTN and HLD Procedure: Pharmacological stress test was performed with a bolus dose of 0.4 mg of Regadenoson. Gated myocardial perfusion imaging was performed at rest following the injection of 16.5 millicuries of technetium labeled tetrofosmin and post stress following the injection of 43.8 millicuries of technetium labeled tetrofosmin. Findings: The overall quality of the study was good. Stress EKG showed no inducible ischemia, reported separately. SPECT images demonstrate homogeneous tracer distribution throughout the myocardium. Gated SPECT images demonstrate normal wall motion and myocardial thickening. Left ventricular ejection fraction was calculated to be 74 at rest and85 post-stress. Procedure Note Joann, Radiant Results Inft User - 03/30/2019 6:04 PM CDT * * * * * * * * ORIGINAL REPORT * * * * * * * * Pharmacological myocardial perfusion imaging report Type: Technetium 99 labeled tetrofosmin rest/stress single isotope SPECT imaging with Regadenoson pharmacological stress and gated SPECT imaging. Indication: dyspnea Clinical history: HTN and HLD Procedure: Pharmacological stress test was performed with a bolus dose of 0.4 mg of Regadenoson. Gated myocardial perfusion imaging was performed at rest following the injection of 16.5 millicuries of technetium labeled tetrofosmin and post stress following the injection of 43.8 millicuries of technetium labeled tetrofosmin. Findings: The overall quality of the study was good. Stress EKG showed no inducible ischemia, reported separately. SPECT images demonstrate homogeneous tracer distribution throughout the myocardium. Gated SPECT images demonstrate normal wall motion and myocardial thickening. Left ventricular ejection fraction was calculated to be 74 at rest and 85 post-stress. IMPRESSION Impression: Normal myocardial perfusion scan with preserved ejection fraction and normal wall thickening. I was present for the stress portion. Performing Organization Address City/State/Zipcode Phone Number PACS/VR/DOSE documented in this encounter Insurance Payer Benefit Plan / Subscriber ID Effective Phone Address Type Group Dates [facility] [id number] 2017-Pres Medicare HEALTHCARE - HEALTHCARE ent Adv HMO MANAGED DUAL COMPLETE MEDICARE [facility]MO [facility] MEDICA[facility] OF xxxxxxxxx 2019-Pres [phone] [place] ent [phone] [id number] [place] [address] documented as of this encounter
--- OUTSIDE RECORDS SUMMARY | 2019-10-26 12:50 | XMS REPORT | Summary of Care ---
:1930 Author Organization [facility] Address [address] [place] [address] Care Team Providers Name Role Phone Juan R Bartlett Primary Care Provider Reason for Referral Radiology Services (Routine) Status Reason Specialty Diagnoses / Procedures Referred By Contact Referred To Contact Closed Radiology Diagnoses SOB (shortness of breath) SOB (shortness of breath) Roshan Siu MD [facility] Nuclear Procedures NM MYOCARDIUM PERFUSION STRESS AND REST CHG MYOCARDIAL SPECT MULTIPLE STUDIES MYOCARDIUM PERFUSION STRESS AND REST [address] [place] [phone] Radiology Services (Routine) Status Reason Specialty Diagnoses / Procedures Referred By Contact Referred To Contact Closed Radiology Diagnoses SOB (shortness of breath) SOB (shortness of breath) Roshan Siu MD Adc Nuclear Procedures NM MYOCARDIUM PERFUSION STRESS AND REST CHG MYOCARDIAL SPECT MULTIPLE STUDIES MYOCARDIUM PERFUSION STRESS AND REST [address] [place] [phone] Reason for Visit Auth/Cert Status Reason Specialty Diagnoses / Referred By Referred To Procedures Contact Contact Echocardiograph Diagnoses Shortness of breath R06.02 [facility] Echo Cardio Procedures [place] CV STRS TST XERS&/OR RX CONT ECG W/O I&R [place] CARDIAC STRESS TST,TRACING ONLY [place] CARDIAC STRESS TST,INTERP/REPT ONLY Lab-Pt [address] [facility] [place] [address] Encounter Details Date Type Department Care Team Description 03/30/2019 Hospital Encounter [facility] Roshan Siu MD Arrived [address] [place] [address] [place] [address] Allergies Active Allergy Reactions Severity [...] 04/28/2019 Office Visit Cardiology Roshan Siu MD [address] [place] [address] [address] [place] [address] Health Maintenance Due Date Last Done Comments [...] 74 at rest and85 post-stress. Procedure Note [facility], Radiant Results Inft User - 03/30/2019 6:04 [...] for the stress portion. Performing Organization Address [facility] Phone Number PACS/VR/DOSE documented in this encounter Visit Diagnoses Diagnosis SOB (shortness of breath) Shortness of breath documented in this encounter Administered Medications Medication Order MAR Action Action Date Dose Rate Site tc 99m-tetrofosmin Given 03/30/2019 11:30 AM 43.8 millicuries (MYOVIEW) injection 43.8 CDT millicurie 43.8 millicurie, Intravenous, ONCE, 1 dose, Tu03/30/19 at 1130, Routine documented in this encounter Insurance Payer Benefit Plan / Subscriber ID Effective Phone Address Type Group Dates [facility] [id number] 2017-Pres Medicare HEALTHCARE - HEALTHCARE ent Adv HMO MANAGED DUAL COMPLETE MEDICARE HMO [facility] MEDICAID OF xxxxxxxxx 2019-Pres [phone] [address] Medicaid [place] ent [phone] [id number] [place] [address] documented as of this encounter
--- OUTSIDE RECORDS SUMMARY | 2019-10-26 12:50 | XMS REPORT | Summary of Care ---
:1930 Author Organization [facility] Address [address] [place] [address] Care Team Providers Name Role Phone Tri Juan R Yaritza Primary Care Provider Reason for Visit Auth/Cert Status Reason Specialty Diagnoses / Referred By Referred To Procedures Contact Contact Echocardiograph Diagnoses Shortness of breath R06.02 Adc Echo Cardio Procedures NE CV STRS TST XERS&/OR RX CONT ECG W/O I&R NE CARDIAC STRESS TST,TRACING ONLY NE CARDIAC STRESS TST,INTERP/REPT ONLY Lab-Pt [address] [facility] [place] [address] Encounter Details Date Type Department Care Team Description 03/30/2019 Hospital Encounter [facility] Roshan Siu MD Arrived [address] [place] [address] Dr [address] [place] [address] [place] [address] Allergies Active Allergy Reactions Severity [...] 04/28/2019 Office Visit Cardiology Roshan Siu MD [address] [place] [address] [address] [place], [place] [phone] Health Maintenance Due Date Last Done Comments [...] results section. documented in this encounter Results Not on filedocumented in this encounter Administered Medications Medication Order MAR Action Action Date Dose Rate Site tc 99m-tetrofosmin Given 03/30/2019 9:47 AM 16.5 millicuries (MYOVIEW) injection 16.5 CDT millicurie 16.5 millicurie, Intravenous, ONCE, 1 dose, 03/30/19 at 1000, Routine documented in this encounter Insurance Payer Benefit Plan / Subscriber ID Effective Phone Address Type Group Dates [facility] [id number] 2017-Pres Medicare HEALTHCARE - HEALTHCARE ent Adv HMO MANAGED DUAL COMPLETE MEDICARE O [facility] MEDICAID OF xxxxxxxxx 2019-Pres [phone] [address] [place] ent [id number] [place] [address] documented as of this encounter
--- OUTSIDE RECORDS SUMMARY | 2019-10-26 12:50 | XMS REPORT | Summary of Care ---
:1930 Author Organization [facility] Address [address] [place] [address] Care Team Providers Name Role Phone Juan R Bartlett Primary Care Provider Reason for Visit Reason Comments Results Encounter Details Date Type Department Care Team Description 04/02/2019 Telephone [facility] Cardiology- Roshan Siu MD Results [address] [address] [facility] [address] [place], [place] [address] [place] [phone] Allergies Active Allergy Reactions Severity Noted Date Comments Sulfa (Sulfonamide Antibiotics) Unknown - See comments 02/25/2019 documented as of this encounter (statuses as of 04/02/2019) Medications Medication Sig Dispensed Refills Start Date [...] as of this encounter (statuses as of 04/02/2019) Active Problems Not on filedocumented as of this encounter (statuses as of 04/02/2019) Social History Tobacco Use Types Packs/Day Years [...] 04/28/2019 Office Visit Cardiology Roshan Siu MD [address] [place] [address] [place], [place] [id number] [phone] Health Maintenance Due Date Last Done Comments DTaP,Tdap,and Td Vaccines (1 - Tdap) 1949 Zoster Recombinant Vaccine (SHINGRIX) (1 of 2) 1982 Medicare Wellness Visit 1997 Osteoporosis Screening 1997 PNEUMOCOCCAL VACCINES 65+ (1 of 2 - PCV13) 1997 INFLUENZA VACCINE (#1) 2019 documented as of this encounter Results Not on filedocumented in this encounter Insurance Payer Benefit Plan / Subscriber ID Effective Phone Address Type Group Dates [place] [id number] 2017-Pres Medicare HEALTHCARE - HEALTHCARE ent Adv HMO MANAGED DUAL COMPLETE MEDICARE HMO [facility] MEDICAID OF xxxxxxxxx 2019-Pres [phone] [address] [place] ent [id number] [place] [address] documented as of this encounter
--- OUTSIDE RECORDS SUMMARY | 2019-10-26 12:50 | XMS REPORT | Summary of Care ---
:1930 Author Organization [facility] Address [address] [place] [address] Care Team Providers Name Role Phone Tri Juan R Yaritza Primary Care Provider Reason for Visit Auth/Cert Status Reason Specialty Diagnoses / Referred By Referred To Procedures Contact Contact Echocardiograph Diagnoses Shortness of breath R06.02 Adc Echo Cardio Procedures DC CV STRS TST XERS&/OR RX CONT ECG W/O I&R DC CARDIAC STRESS TST,TRACING ONLY DC CARDIAC STRESS TST,INTERP/REPT ONLY Lab-Pt [address] [facility] [place] [address] Encounter Details Date Type Department Care Team Description 03/30/2019 Hospital Encounter [facility] Roshan Siu MD Arrived [address] [place] [address] [address] [place] [address] [place] [address] Allergies Active Allergy Reactions Severity [...] 04/28/2019 Office Visit Cardiology Roshan Siu MD [address] [place] [address] [address] [place], [place] [phone] Health Maintenance Due Date Last Done Comments [...] ID Effective Phone Address Type Group Dates [facility] [id number] 2017-Pres Medicare HEALTHCARE - HEALTHCARE ent Adv HMO MANAGED DUAL COMPLETE MEDICARE HMO [facility] MEDICAID OF xxxxxxxxx 2019-Pres [phone] [address] [place] ent [phone] [id number] [place] [address] documented as of this encounter
--- OUTSIDE RECORDS SUMMARY | 2019-10-26 12:51 | XMS REPORT | Summary of Care ---
:1930 Author Organization [facility] Address [address] [place] [address] Care Team Providers Name Role Phone Juan R Bartlett Primary Care Provider Reason for Visit Reason Comments Follow-up 2mo Encounter Details Date Type Department Care Team Description 04/28/2019 Office Visit [facility] Roshan Siu MD Essential hypertension (Primary Dx); Cardiology- [address] SOB (shortness of breath); [address] [place] [address] DRIVE Hyperlipidemia, unspecified hyperlipidemia type; Drive, [address] Obesity (BMI 30-39.9) [place] [phone] Allergies Active Allergy Reactions Severity Noted Date Comments Sulfa (Sulfonamide Antibiotics) Unknown - See comments 02/25/2019 documented as of this encounter (statuses as of 04/28/2019) Medications Medication Sig Dispensed Refills Start Date End Date Status esomeprazole 40 mg Take 40 mg by 0 Active capsule mouth 2 (two) times daily. levothyroxine 88 mcg Take 88 mcg 0 Active tablet by mouth every morning. buPROPion XL Take 300 mg 0 Active (WELLBUTRIN XL) 300 by mouth mg 24 hr tablet daily. ezetimibe 10 mg Take 10 mg by 0 Active tablet mouth daily. furosemide 20 mg Take 20 mg by 0 Active tablet mouth daily. traMADOL 50 mg Take 50 mg by 0 Active tablet mouth every 6 (six) hours as needed. KCL 10 mEq tablet Take 10 mEq 0 Active by mouth 2 (two) times daily. loratadine 10 mg Take 10 mg by 0 Active tablet mouth daily. fluticasone Use in each 0 Active propionate 50 nostril mcg/actuation nasal daily. spray amitriptyline 100 mg Take 50 mg by 0 Active tablet mouth at bedtime. mesalamine 1.2 gram Take 2 0 03/02/2019 Active EC tablet tablets by mouth daily with breakfast. telmisartan 40 mg Take 1 tablet 0 03/02/2019 Active tablet by mouth daily. memantine-donepezil Take by 0 Active (NAMZARIC) 28-10 mg mouth 2 (two) CSpX times daily. donepezil 10 mg Take 10 mg by 0 04/28/2019 Discontinued tablet mouth 2 (two) times daily. documented as of this encounter (statuses as of 04/28/2019) Active Problems Not on filedocumented as of this encounter (statuses as of 04/28/2019) Social History Tobacco Use Types Packs/Day Years [...] of this encounter Last Filed Vital Signs Vital Sign Reading Time Taken Comments Blood Pressure 142/83 04/28/2019 2:29 PM CDT Pulse 80 04/28/2019 2:23 PM CDT Temperature - - Respiratory Rate 19 04/28/2019 2:23 PM CDT Oxygen Saturation 96% 04/28/2019 2:23 PM CDT Inhaled Oxygen Concentration - - Weight 93.5 kg (206 lb 1.6 oz) 04/28/2019 2:23 PM CDT Height 170.2 cm (5' 7") 04/28/2019 2:23 PM CDT Body Mass Index 32.28 04/28/2019 2:23 PM CDT documented in this encounter Progress Notes Roshan Siu MD - 04/28/2019 2:00 PM CDT CARDIOLOGY CLINIC NOTE 04/28/2019 Reason for Referral/Presenting Complaint: SOB, fatigue PCP: Juan R Bartlett History of Present Illness: Eileen Carrero is an 88 years old male with history of HTN, HLD and obesity. Since 10/2018 she has been feeling SOB all the time, worse with activities. No chest pain. Gets SOB by walking to the mailbox. No orthopnea. Chronic fatigue. Has been taking lasix for years for leg edema. BP is controlled. Her ECHO and nuclear stress test are normal. Unwilling to get a sleep study. Review of Systems: General: (-) fever, (-) chills, (-) weight change, (-) dizziness, (+) fatigue Skin: (-) rash HEENT: (-) headache, (-) change in vision Neck: (-) difficulty swallowing Heme: negative Resp: (-) cough, (+) dyspnea on exertion Cardio: (-) chest pain, (-) palpitations, (-) syncope GI: (-) vomiting, (-) diarrhea : negative Endo: (-) diabetes, (-) thyroid disease Neuro: (-) numbness, (-) tingling, (-) weakness Back: (-) pain ELENA: (-) muscle pain, (-) claudication Psych: (-) anxiety, (-) depression Past Medical History: No past medical history on file. Current Medications: Current Outpatient Medications Medication Sig Dispense Refill memantine-donepezil (NAMZARIC) 28-10 mg CSpX Take by mouth 2 (two) times daily. mesalamine 1.2 gram EC tablet Take 2 tablets by mouth daily with breakfast. telmisartan 40 mg tablet Take 1 tablet by mouth daily. amitriptyline 100 mg tablet Take 50 mg by mouth at bedtime. buPROPion XL (WELLBUTRIN XL) 300 mg 24 hr tablet Take 300 mg by mouth daily. esomeprazole 40 mg capsule Take 40 mg by mouth 2 (two) times daily. ezetimibe 10 mg tablet Take 10 mg by mouth daily. fluticasone propionate 50 mcg/actuation nasal spray Use in each nostril daily. furosemide 20 mg tablet Take 20 mg by mouth daily. KCL 10 mEq tablet Take 10 mEq by mouth 2 (two) times daily. levothyroxine 88 mcg tablet Take 88 mcg by mouth every morning. loratadine 10 mg tablet Take 10 mg by mouth daily. traMADOL 50 mg tablet Take 50 mg by mouth every 6 (six) hours as needed. No current facility-administered medications for this visit. Social History: Social History Socioeconomic History Marital status: Single Spouse name: Not on file Number of children: Not on file Years of education: Not on file Highest education level: Not on file Occupational History Not on file Social Needs Financial resource strain: Not on file Food insecurity: Worry: Not on file Inability: Not on file Transportation needs: Medical: Not on file Non-medical: Not on file Tobacco Use Smoking status: Never Smoker Smokeless tobacco: Never Used Substance and Sexual Activity Alcohol use: Never Frequency: Never Drug use: Not on file Sexual activity: Not on file Lifestyle Physical activity: Days per week: Not on file Minutes per session: Not on file Stress: Not on file Relationships Social connections: Talks on phone: Not on file Gets together: Not on file Attends mormon service: Not on file Active member of club or organization: Not on file Attends meetings of clubs or organizations: Not on file Relationship status: Not on file Intimate partner violence: Fear of current or ex partner: Not on file Emotionally abused: Not on file Physically abused: Not on file Forced sexual activity: Not on file Other Topics Concern Not on file Social History Narrative Not on file Family History No family history on file. Physical Examination: BP (!) 142/83 | Pulse 80 | Resp 19 | Ht 5' 7" (1.702 m) | Wt 206 lb 1.6 oz ( 93.5 kg) | SpO2 96% | BMI 32.28 kg/m Constitutional: alert and oriented x 3 (person, place and date/time); no apparent distress, obese ENT: normocephalic atraumatic, supple, no lymphadenopathy, no bruits, no JVD Lungs: clear to auscultation bilaterally Cardiovascular: S1, S2 normal, regular; no murmurs, rubs or gallops GI: soft; non-tender; non-distended; normoactive bowel sounds : not examined Musculoskeletal: Extremities: no clubbing, cyanosis, + trace edema Skin: no rashes Neuro: no focal deficits Cardiovascular testing: EKG: Normal sinus rhythm. Normal EKG. ECHO--Normal LVEF Nuclear stress test--No ischemia 10/2018--HGB 13.1, Cr 0.87, K 4.1, LDL 140 Assessment/Plan: ICD-10-CM ICD-9-CM 1. Essential hypertension I10 401.9 2. SOB (shortness of breath) R06.02 786.05 3. Hyperlipidemia, unspecified hyperlipidemia type E78.5 272.4 4. Obesity (BMI 30-39.9) E66.9 278.00 SOB--New onset. Volume status is acceptable. ECHO unremarkable. Probably due to obesity and deconditioning. Advised to change lifestyle and to lose weight. Negative nuclear stress test. Fatigue/obesity--Does not want a sleep study. HTN--Well controlled. HLD--On zetia. Patient was counseled for lifestyle modifications including: diet, exercise and weight loss. RTC 12 months Roshan Siu MD, FAC, JADIEL School Speech Therapist, Division of Cardiology [facility] documented in this encounter Plan of Treatment Date Type Specialty Care Team Description 05/01/2020 Office Visit Cardiology Roshan Siu MD [address] [place] [address] [place] [address] [phone] Health Maintenance Due Date Last Done Comments DTaP,Tdap,and Td Vaccines (1 - Tdap) 1949 Zoster Recombinant Vaccine (SHINGRIX) (1 of 2) 1982 Medicare Wellness Visit 1997 Osteoporosis Screening 1997 PNEUMOCOCCAL VACCINES 65+ (1 of 2 - PCV13) 1997 INFLUENZA VACCINE (#1) 2019 documented as of this encounter Results Not on filedocumented in this encounter Visit Diagnoses Diagnosis Essential hypertension - Primary Unspecified essential hypertension SOB (shortness of breath) Shortness of breath Hyperlipidemia, unspecified hyperlipidemia type Obesity (BMI 30-39.9) Obesity, unspecified documented in this encounter Insurance Payer Benefit Plan / Subscriber ID Effective Phone Address Type Group Dates [facility] [id number] 2017-Pres Medicare HEALTHCARE - HEALTHCARE ent Adv HMO MANAGED DUAL COMPLETE MEDICARE O [facility] MEDICAID OF xxxxxxxxx 2019-Pres [phone] [place] ent [id number] [place] [address] documented as of this encounter
--- OUTSIDE RECORDS SUMMARY | 2019-10-26 12:51 | XMS REPORT | Summary of Care ---
:1932 Author Organization [facility] Address [address] [place] [address] Care Team Providers Name Role Phone Juan R Bartlett Primary Care Provider Reason for Visit Reason Comments Follow-up 2mo Encounter Details Date Type Department Care Team Description 04/28/2019 Office Visit [facility] Roshan Siu MD Essential hypertension (Primary Dx); Cardiology- [address] SOB (shortness of breath); [address] [place] [address] DRIVE Hyperlipidemia, unspecified hyperlipidemia type; Drive, [address] Obesity (BMI 30-39.9) [place] [phone] Allergies Active Allergy Reactions Severity Noted [...] file Gets together: Not on file Attends yazidi service: Not on file Active member of [...] 12 months Roshan Siu MD, FAC, JADIEL Forest Economist, Division of Cardiology [facility] documented in this encounter Plan of Treatment Date Type Specialty Care Team Description 05/01/2020 Office Visit Cardiology Roshan Siu MD [address] [place] [address] [place] [address] [phone] Health Maintenance Due Date Last Done Comments [...] ID Effective Phone Address Type Group Dates [facility] [id number] 2017-Pres Medicare HEALTHCARE - HEALTHCARE ent Adv HMO MANAGED DUAL COMPLETE MEDICARE O [facility] MEDICAID OF xxxxxxxxx 2019-Pres [phone] [address] Medicaid [place] ent 900 [id number] [place] [address] documented as of this encounter
[2019-10-26] MEDS ORDERED: MORPHINE 2 MG/ML SYR ONE ×2 (14:14→20:11)
[2019-10-26] MEDS ORDERED: ONDANSETRON 4 MG/2 ML VIAL ONE ×2 (14:14→20:11)
[2019-10-26] MEDS ORDERED: NA CHLORIDE 0.9% 1,000 ML ONE (14:30)
[2019-10-26 14:34] LABS: Absolute Lymphocytes (CBC) 1.8 K/uL (0.7-4.9); Basophils % 0.8 % (0-1.3); Hematocrit 36.7 % (36.0-45.0); Lymphocytes % 13.2 % (15.3-44.8); MPV 6.8 fL (7.6-11.3)
[2019-10-26 14:45] LABS: ALT/SGPT 42 U/L (12-78); AST/SGOT 32 U/L (15-37); Albumin 2.6 g/dL (3.4-5.0); Alkaline Phosphatase 120 U/L (45-117); BUN Blood Urea Nitrogen 18 mg/dL (7-18); Bicarbonate 26 mmol/L (21-32); Bilirubin Direct 0.1 mg/dL (0-0.2); Bilirubin Total 0.3 mg/dL (0.2-1.0); Glucose Level 96 mg/dL (74-106); Lipase 73 U/L (73-393); NT PRO-BNP 121 pg/mL (<450); Potassium 4.3 mmol/L (3.5-5.1); Protein, Total 7.8 g/dL (6.4-8.2); Sodium Level 136 mmol/L (136-145); Troponin (Emerg Dept Use Only) < 0.02 ng/mL (0.0-0.045)
--- NOTE | 2019-10-26 14:45 | RAD REPORT ---
EXAM DESCRIPTION: Laureen Single View10/26/2019 2:30 pm CLINICAL HISTORY: Chest pain COMPARISON: 2010 FINDINGS: Consolidation mid to lower right lung. Left lung appears clear. Heart is normal size IMPRESSION: Moderate right consolidation likely pneumonia. This should be followed until it is clear to help exclude a post obstructive process/underlying mass
--- NOTE | 2019-10-26 15:25 | RAD REPORT ---
EXAM DESCRIPTION: CT - Chest Abdomen Pelvis W Cont - 10/26/2019 3:09 pm CLINICAL HISTORY: Chest and abdomen pain. chest pain, flank pain COMPARISON: Chest Single View dated 10/26/2019 TECHNIQUE: Approximately 100 mL nonionic IV contrast was administered to the patient. All CT scans are performed using dose optimization technique as appropriate and may include automated exposure control or mA/KV adjustment according to patient size. FINDINGS: Filling defect is seen within the right main and right lower lobe pulmonary arterial branc hes compatible with pulmonary embolism.Triangular airspace opacity in the right mid lung may represen t pneumonia or an area of pulmonary infarct.Small partially loculated right pleural effusion.The left lung appears grossly clear.No intrathoracic adenopathy. The liver, spleen, pancreas, adrenal glands and kidneys are within normal limits. Small benign left r enal cyst. No bowel obstruction, free air, free fluid or abscess. The appendix is not identified as a discrete s tructure, however, no secondary findings of appendicitis are identified. Sigmoid diverticulosis is s een without diverticulitis. No pathologic lymphadenopathy in the abdomen or pelvis. Tiny air bubble is seen in the urinary bladder. Small bilateral fat containing inguinal hernias. Mode rate lumbar degenerative changes. IMPRESSION: Positive for right-sided pulmonary emboli as detailed.Triangular opacity in the right mehdi ng laterally may represent infiltrate/ pneumonia or an area of pulmonary infarct. Small right pleural effusion loculations. Tiny air bubble in the urinary bladder could indicate cystitis or recent instrumentation. Sigmoid diverticulosis coli without diverticulitis findings. The findings were discussed with Dr. Koo On 10/26/2019 at 3:20 p.m. by telephone.
--- NOTE | 2019-10-26 15:29 | EKG ---
Test Date: 2019-10-26 Test Time: 14:37:46 Fruit Harvester Machine Operator: CRISTIANA MEASUREMENT RESULTS: Intervals: Rate: 65 ME: 198 QRSD: 100 QT: 408 QTc: 424 [place]: P: 22 ME: 198 QRS: 19 T: 63 INTERPRETIVE STATEMENTS: Normal sinus rhythm Normal ECG Compared to ECG 08/24/2010 15:13:58 First degree AV block no longer present Electronically Signed On 10-26-19 15:28:34 CDT by Thom Mcdaniel
--- NOTE | 2019-10-26 15:57 | EDPHYS ---
Physician Documentation [facility] Name: Eileen Carrero Age: 89 yrs Sex: Female : 1930 Arrival Date: 10/26/2019 Time: 12:49 Bed 15 Private MD: Juan R Bartlett E ED Physician Dom Koo HPI: 10/25 14:05 This 89 yrs old Female presents to ER via Ambulatory with complaints of rn Abdominal Pain, Flank Pain, Back Pain, Shortness Of Breath. 14:05 The patient complains of pain in the right flank. The pain radiates to the chest and rn abdomen. Onset: The symptoms/episode began/occurred 1 week(s) ago. Modifying factors: The symptoms are alleviated by nothing. the symptoms are aggravated by movement, palpation/percussion, exertion, palpation. Severity of pain: At its worst the pain was moderate in the emergency department the pain is unchanged. The patient has not experienced similar symptoms in the past. The patient has not recently seen a physician. Reports right flank pain, reports in chest along ribs as well as upper abdomen, no trauma, + mild cough that she attributes to allergies. No fever. Reports right upper abd pain as well. Reports worse with palpation, deep breath, abd palpation, and palpation of chest wall. No rash. . Historical: - Allergies: 13:24 Celecoxib; ss 13:24 Sulfa (Sulfonamide Antibiotics); ss 13:24 Tape; ss - Home Meds: 14:02 aspirin 81 mg Oral chew 1 tab once daily [Active]; estradiol Oral [Active]; Potassium tw2 Chloride Oral [Active]; Nexium Oral [Active]; Synthroid Oral [Active]; Tramadol Oral [Active]; - PMHx: 13:24 Arthritis; Crohn's; Depression; Hyperlipidemia; Hypertension; Hypothyroidism; ss - PSHx: 13:24 Knee surgery; ss - Immunization history:: Adult Immunizations up to date. - Social history:: Smoking status: Patient denies any tobacco usage or history of. - Family history:: not pertinent. - Hospitalizations: : No recent hospitalization is reported. ROS: 14:05 Constitutional: Negative for fever, chills, and weight loss, Eyes: Negative for injury, rn pain, redness, and discharge, Neck: Negative for injury, pain, and swelling, Cardiovascular: Negative for palpitations, and edema, Respiratory: Negative for wheezing Abdomen/GI: + abd pain, negative for vomiting : Negative for injury, bleeding, discharge, and swelling, MS/Extremity: Negative for injury and deformity, Skin: Negative for injury, rash, and discoloration, Neuro: Negative for headache, weakness, numbness, tingling, and seizure. Exam: 14:05 Constitutional: This is a well developed, well nourished patient who is awake, alert, rn and seems uncomfortable Head/Face: Normocephalic, atraumatic. ENT: dry MM Chest/axilla: Normal chest wall appearance and motion. + mild tenderness right chest wall along ribs, neg for crepitus Cardiovascular: Regular rate and rhythm. No pulse deficits. Respiratory: + mild tachypnea with splinting, diminished breath sounds right base Abdomen/GI: soft, + tender right flank and upper abdomen, no rebound Skin: Warm, dry, no evidence of cellulitis. MS/ Extremity: Pulses equal, no cyanosis. Neurovascular intact. Full, normal range of motion. Equal circumference. Neuro: Awake and alert, GCS 15, oriented to person, place, time, and situation. Cranial nerves II-XII grossly intact. Motor strength 5/5 in all extremities. Sensory grossly intact. 16:05 ECG was reviewed by the Attending Physician. rn Vital Signs: 13:24 BP 142 / 86; Pulse 64; Resp 17; Temp 98.1(TE); Pulse Ox 96% ; Weight 88.9 kg; Height 5 ss ft. 7 in. (170.18 cm); Pain 6/10; 14:54 BP 144 / 65; Pulse 64; Resp 17; Pulse Ox 96% on R/A; tw2 16:00 BP 159 / 75; Pulse 57; Resp 17; Pulse Ox 100% on R/A; tw2 17:00 BP 147 / 76; Pulse 57; Resp 17; Pulse Ox 98% on R/A; tw2 18:12 BP 153 / 77; Pulse 63; Resp 17; Pulse Ox 95% on R/A; tw2 19:31 BP 106 / 70; Pulse 95; Resp 18; Temp 98.2; Pulse Ox 99% on R/A; mg2 13:24 Body Mass Index 30.70 (88.90 kg, 170.18 cm) ss MDM: 13:27 Patient medically screened. rn 15:47 Differential diagnosis: pneumonia, pulmonary emboli. rn 15:52 Data reviewed: vital signs, nurses notes, lab test result(s), EKG, radiologic studies, rn CT scan, plain films, and as a result, I will admit patient. Counseling: I had a detailed discussion with the patient and/or guardian regarding: the historical points, exam findings, and any diagnostic results supporting the discharge/admit diagnosis, lab results, radiology results, the need for further work-up and treatment in the hospital. Medical screen evaluation [facility]. Response to treatment: the patient's symptoms have mildly improved after treatment, and as a result, I will admit patient. Admission orders: after a detailed discussion of the patient's condition and case, the admit orders are written by me. 15:52 ED course: Pt with symptoms for 2-3 weeks, dyspnea on exertion, has multiple pulmonary rn emboli right lung, oxygen 96% at rest, daughter states very limited exertional capacity. consulted with Dr. Mercado, states ok to keep here, will consult on patient, marce for anticoagulation. Admitted to dr hoffman.. 10/25 13:51 Order name: Basic Metabolic Panel; Complete Time: 15:17 rn 10/25 13:51 Order name: CBC with Diff; Complete Time: 15:17 rn 10/25 13:51 Order name: Creatinine for Radiology; Complete Time: 15:17 rn 10/25 13:51 Order name: Hepatic Function; Complete Time: 15:17 rn 10/25 13:51 Order name: Lipase; Complete Time: 15:17 10/25 13:51 Order name: N-Terminal Pro-brain Natriuretic Peptide; Complete Time: 15:17 rn 10/25 13:51 Order name: XRAY Chest (1 view); Complete Time: 15:17 rn 10/25 13:51 Order name: CT Chest, Abdomen, Pelvis - W/Contrast; Complete Time: 16:06 rn 10/25 13:51 Order name: Troponin (emerg Dept Use Only); Complete Time: 15:17 rn 10/25 15:18 Order name: Blood Culture Adult (2) rn 10/25 15:18 Order name: Procalcitonin; Complete Time: 17: rn 10/25 13:51 Order name: IV Saline Lock; Complete Time: 14:21 rn 10/25 13:51 Order name: Labs collected and sent; Complete Time: 14:21 rn 10/25 13:51 Order name: EKG; Complete Time: 13:52 rn 10/25 13:51 Order name: EKG - Nurse/Tech; Complete Time: 15:31 rn EC:05 Rate is 65 beats/min. Rhythm is regular. QRS [place] is Normal. MT interval is normal. QRS rn interval is normal. QT interval is normal. No Q waves. T waves are Normal. No ST changes noted. Clinical impression: Normal ECG. Interpreted by me. Reviewed by me. Administered Medications: 14:16 Drug: Zofran (Ondansetron) 4 mg Route: IVP; Site: right antecubital; tw2 15:32 Follow up: Response: No adverse reaction tw2 14:18 Drug: morphine 2 mg Route: IVP; Site: right antecubital; tw2 15:31 Follow up: Response: No adverse reaction; Pain is decreased; RASS: Alert and Calm (0) tw2 16:05 Drug: Rocephin 1 grams Route: IV; Rate: calculated rate; Site: right antecubital; tw2 16:12 Follow up: Response: No adverse reaction; IV Status: Completed infusion tw2 16:08 Drug: Lovenox 1 mg/kg Route: Sub-Q; Site: right lower abdomen; tw2 16:44 Follow up: Response: No adverse reaction tw2 16:44 Drug: Zithromax 500 mg Route: IVPB; Infused Over: 1 hrs; Site: right antecubital; tw2 17:45 Follow up: Response: No adverse reaction; IV Status: Completed infusion tw2 20:10 Drug: morphine 2 mg Route: IVP; Site: right antecubital; mg2 20:21 Follow up: Response: No adverse reaction mg2 20:10 Drug: Zofran (Ondansetron) 4 mg Route: IVP; Site: right antecubital; mg2 20:21 Follow up: Response: No adverse reaction mg2 Disposition: 10/26/19 15:56 Hospitalization ordered by Philippe Hoffman for Inpatient Admission. Preliminary diagnosis are Pulmonary embolism, Pneumonia/pneumonitis, right lung, Dyspnea, unspecified. - Bed requested for Telemetry/MedSurg (Inpatient). - Status is Inpatient Admission. mg2 - Condition is Stable. - Problem is new. - Symptoms have improved. Signatures: Dispatcher [employer] EDMS Kiley Meyers, RN RN dw Dom Koo MD MD rn Smirch, Shelby, RN RN ss Neli Daniel, CARROLL RN tw2 Keith Phillips, CARROLL RN mg2 Corrections: (The following items were deleted from the chart) 17:41 15:56 Hospitalization Ordered by Philippe Hoffman MD for Inpatient Admission. Preliminary dw diagnosis is Pulmonary embolism; Pneumonia/pneumonitis, right lung; Dyspnea, unspecified. Bed requested for Telemetry/MedSurg (Inpatient). Status is Inpatient Admission. Condition is Stable. Problem is new. Symptoms have improved. rn 20:23 17:41 10/26/2019 15:56 Hospitalization Ordered by Philippe Hoffman MD for Inpatient mg2 Admission. Preliminary diagnosis is Pulmonary embolism; Pneumonia/pneumonitis, right lung; Dyspnea, unspecified. Bed requested for Telemetry/MedSurg (Inpatient). Status is Inpatient Admission. Condition is Stable. Problem is new. Symptoms have improved. dw
--- NOTE | 2019-10-26 15:57 | ER ---
Nurse's Notes [facility] Name: Eileen Carrero Age: 89 yrs Sex: Female : 1930 Arrival Date: 10/26/2019 Time: 12:49 Bed 15 Private MD: Juan R Bartlett E Diagnosis: Pulmonary embolism;Pneumonia/pneumonitis, right lung;Dyspnea, unspecified Presentation: 10/25 13:22 Chief complaint: Patient states: R flank pain that wraps around to RUQ that began 1 ss week. Coronavirus screen: The patient has NOT traveled to a country currently being monitored by the [facility] within the last 14 days. Proceed with normal triage procedures. Ebola Screen: Patient denies exposure to infectious person. Patient denies travel to an Ebola-affected area in the 21 days before illness onset. Initial Sepsis Screen: Does the patient meet any 2 criteria? No. Patient's initial sepsis screen is negative. Does the patient have a suspected source of infection? No. Patient's initial sepsis screen is negative. Risk Assessment: Do you want to hurt yourself or someone else? Patient reports no desire to harm self or others. 13:22 Method Of Arrival: Ambulatory ss 13:22 Acuity: LEE 3 ss 13:25 Onset of symptoms was October 26, 2019. tw2 Historical: - Allergies: 13:24 Celecoxib; ss 13:24 Sulfa (Sulfonamide Antibiotics); ss 13:24 Tape; ss - Home Meds: 14:02 aspirin 81 mg Oral chew 1 tab once daily [Active]; estradiol Oral [Active]; Potassium tw2 Chloride Oral [Active]; Nexium Oral [Active]; Synthroid Oral [Active]; Tramadol Oral [Active]; - PMHx: 13:24 Arthritis; Crohn's; Depression; Hyperlipidemia; Hypertension; Hypothyroidism; ss - PSHx: 13:24 Knee surgery; ss - Immunization history:: Adult Immunizations up to date. - Social history:: Smoking status: Patient denies any tobacco usage or history of. - Family history:: not pertinent. - Hospitalizations: : No recent hospitalization is reported. Screenin:45 Abuse screen: Denies threats or abuse. Nutritional screening: No deficits noted. tw2 Tuberculosis screening: No symptoms or risk factors identified. Fall Risk Secondary diagnosis (15 points) impaired mobility. Assessment: 13:25 General: Appears in no apparent distress. obese, well groomed, Behavior is calm, tw2 cooperative, appropriate for age. Pain: Complains of pain in abdomen and right flank. Neuro: Level of Consciousness is awake, alert, obeys commands, Oriented to person, place, time, situation. Cardiovascular: Heart tones S1 S2 Patient's skin is warm and dry. Respiratory: Airway is patent Respiratory effort is even, unlabored, Respiratory pattern is regular, symmetrical, Breath sounds are clear bilaterally. GI: Abdomen is flat, Bowel sounds present X 4 quads. Abd is soft X 4 quads. : No signs and/or symptoms were reported regarding the genitourinary system. EENT: No signs and/or symptoms were reported regarding the EENT system. Derm: No signs and/or symptoms reported regarding the dermatologic system. Musculoskeletal: Reports. 13:36 Reassessment: provider at bedside at this time. tw2 14:54 Reassessment: Patient appears in no apparent distress at this time. No changes from tw2 previously documented assessment. Patient and/or family updated on plan of care and expected duration. Pain level reassessed. Patient is alert, oriented x 3, equal unlabored respirations, skin warm/dry/pink. 16:00 Reassessment: Patient appears in no apparent distress at this time. No changes from tw2 previously documented assessment. Patient and/or family updated on plan of care and expected duration. Pain level reassessed. Patient is alert, oriented x 3, equal unlabored respirations, skin warm/dry/pink. 17:00 Reassessment: Patient appears in no apparent distress at this time. No changes from tw2 previously documented assessment. Patient and/or family updated on plan of care and expected duration. Pain level reassessed. Patient is alert, oriented x 3, equal unlabored respirations, skin warm/dry/pink. 18:14 Reassessment: Patient appears in no apparent distress at this time. No changes from tw2 previously documented assessment. Patient and/or family updated on plan of care and expected duration. Pain level reassessed. Patient is alert, oriented x 3, equal unlabored respirations, skin warm/dry/pink. Vital Signs: 13:24 BP 142 / 86; Pulse 64; Resp 17; Temp 98.1(TE); Pulse Ox 96% ; Weight 88.9 kg; Height 5 ss ft. 7 in. (170.18 cm); Pain 6/10; 14:54 BP 144 / 65; Pulse 64; Resp 17; Pulse Ox 96% on R/A; tw2 16:00 BP 159 / 75; Pulse 57; Resp 17; Pulse Ox 100% on R/A; tw2 17:00 BP 147 / 76; Pulse 57; Resp 17; Pulse Ox 98% on R/A; tw2 18:12 BP 153 / 77; Pulse 63; Resp 17; Pulse Ox 95% on R/A; tw2 19:31 BP 106 / 70; Pulse 95; Resp 18; Temp 98.2; Pulse Ox 99% on R/A; mg2 13:24 Body Mass Index 30.70 (88.90 kg, 170.18 cm) ss ED Course: 12:49 Patient arrived in ED. rg4 12:50 Juan R Bartlett MD is Private Physician. rg4 13:23 Triage completed. ss 13:24 Arm band placed on right wrist. ss 13:25 Bed in low position. Call light in reach. Adult w/ patient. equipment monitor phototypesetting on. Pulse tw2 ox on. NIBP on. 13:27 Dom Koo MD is Attending Physician. rn 13:36 Neli Daniel RN is Primary Nurse. tw2 14:16 Inserted saline lock: 20 gauge in right antecubital area, using aseptic technique. tw2 ,using aseptic technique. by [facility] with direct primary nurse observation (CARROLL Quinteros), pt tolerated well, nad, daughter remains at bedside. Blood collected. 14:31 XRAY Chest (1 view) In Process Unspecified. EDMS 14:42 EKG done, by fresh foods technician. reviewed by Dom Koo MD. at1 15:[address] via wheelchair. vm2 15:10 CT Chest, Abdomen, Pelvis - W/Contrast In Process Unspecified. EDMS 15:45 First set of blood cultures drawn by me. tw2 15:55 Philippe Starkey MD is Hospitalizing Provider. rn 16:00 Second set of blood cultures drawn by me. tw2 19:00 Report given to CARROLL Guzmán. tw2 19:40 No provider procedures requiring assistance completed. Patient admitted, IV remains in mg2 place. Administered Medications: 14:16 Drug: Zofran (Ondansetron) 4 mg Route: IVP; Site: right antecubital; tw2 15:32 Follow up: Response: No adverse reaction tw2 14:18 Drug: morphine 2 mg Route: IVP; Site: right antecubital; tw2 15:31 Follow up: Response: No adverse reaction; Pain is decreased; RASS: Alert and Calm (0) tw2 16:05 Drug: Rocephin 1 grams Route: IV; Rate: calculated rate; Site: right antecubital; tw2 16:12 Follow up: Response: No adverse reaction; IV Status: Completed infusion tw2 16:08 Drug: Lovenox 1 mg/kg Route: Sub-Q; Site: right lower abdomen; tw2 16:44 Follow up: Response: No adverse reaction tw2 16:44 Drug: Zithromax 500 mg Route: IVPB; Infused Over: 1 hrs; Site: right antecubital; tw2 17:45 Follow up: Response: No adverse reaction; IV Status: Completed infusion tw2 20:10 Drug: morphine 2 mg Route: IVP; Site: right antecubital; mg2 20:21 Follow up: Response: No adverse reaction mg2 20:10 Drug: Zofran (Ondansetron) 4 mg Route: IVP; Site: right antecubital; mg2 20:21 Follow up: Response: No adverse reaction mg2 Outcome: 15:56 Decision to Hospitalize by Provider. rn 20:22 Admitted to Tele accompanied by nurse, via stretcher, room 404, with chart, Report mg2 called to CARROLL Anna 20:22 Condition: stable 20:22 Instructed on the need for admit, Demonstrated understanding of instructions. 20:23 Patient left the ED. mg2 Signatures: Dispatcher [employer] EDMS Dom Koo MD MD rn Smirch, Shelby, RN RN ss Janna Mai, relationship banker EKG Tat1 Neli Daniel RN RN tw2 Mary Jane Mckeon Meghna Barrett 2 Keith Phillips RN RN mg2 Corrections: (The following items were deleted from the chart) 14:34 14:25 Inserted saline lock: 20 gauge in right antecubital area, using aseptic tw2 technique. ,using aseptic technique. by [facility] with direct primary nurse observation (CARROLL Quinteros), pt tolerated well, nad, daughter remains at bedside. Blood collected. tw2
[2019-10-26] MEDS ORDERED: ENOXAPARIN 80 MG/0.8 ML SQ ONE (16:06)
[2019-10-26] MEDS ORDERED: CEFTRIAXONE/SWI 1gm 1 GM/10 ML SYR ONE (16:06)
[2019-10-26] MEDS ORDERED: AZITHROMYCIN IV 500 MG in NA CHLORIDE 0.9% 250 ML IVPB ONE (17:00)
[2019-10-26] MEDS ORDERED: ACETAMINOPHEN 500 MG TAB PO PRN (20:55)
[2019-10-26] MEDS ORDERED: ONDANSETRON 4 MG/2 ML VIAL IV PRN (20:55)
[2019-10-26] MEDS ORDERED: ENOXAPARIN 100 MG/ML SYR SQ SCH (21:00)
[2019-10-26] MEDS: NA CHLORIDE 0.9% 1,000 ML IV SCH (21:58)
[2019-10-26] MEDS: HYDROCODONE/APAP 7.5/325 MG TAB PO PRN (22:43)
[2019-10-26 23:05] VITALS: BMI 30.7
--- NOTE | 2019-10-27 04:23 | HP ---
Date of Admission: 10/26/2019 Plastics Scientist: Dr. Mercado. Primary Care Physician: Dr. Bartlett. Code Status: Full. Chief Complaint: Shortness of breath, right-sided pleuritic pain. History Of Present Illness: Patient is an 89-year-old female with past medical history of Crohn dise ase, GERD, hypertension, hyperlipidemia, hypothyroidism, dementia, depression, who was in her usual s benites of health until 1-2 weeks prior to admission when the patient started having sudden onset of jhonatan rtness of breath. Patient since then has been somewhat sedentary, has been sitting in her chair, not really moving much due to pleuritic pain on the right side. She otherwise denies any fevers, chills . She does have a dry cough, but no sputum production. No ill contacts. Her symptoms are constant, moderate, progressively worsening. She denies any chest pain. Patient's workup revealed white bloo d cell count of 13.9 with left shift. Imaging studies, however, did show pulmonary embolism, right-s ided triangular opacity, likely infiltrate, or area of pulmonary infarct. Patient was then given Halle enox and then referred for admission. The ED physician and myself contacted the lung doctor, Dr. Davidson harrison for consultation. When seen in the ER, she was awake, alert, and oriented x3, in some mild dis tress, better after receiving pain medications. Past Medical History: Hypertension, hyperlipidemia, hypothyroidism, Crohn disease, dementia, major d epressive disorder, GERD, chronic peripheral edema. Past Surgical History: Knee surgery. Allergies: CELECOXIB, SULFA, AND TAPE. Medications: As per medication reconciliation list. Social History: Patient denies any tobacco use or alcohol use. No illicit drug use. Patient has a daughter nearby, lives independently and does not need assistance with her activities of daily living . Does use a cane to help her ambulate. Family History: Patient denies any premature coronary artery disease in the family. Review of Systems: Ten-point system reviewed, negative except as per HPI. Physical Examination: Vital Signs: Blood pressure 142/86, pulse 64, respirations 17, temperature 98.1, O2 of 96% on room a ir, BMI 30, obese. HEENT: Normocephalic, atraumatic. PERRLA, EOMI. Moist mucous membranes. Oropharynx is clear. Poo r dentition. Conjunctivae are anicteric. Neck: Supple. No JVD. Trachea midline. CV: S1, S2. Regular rate and rhythm. Peripheral pulses weak. Respiratory: Diminished breath sounds, specifically worse on the right compared to the left. No whe ezing or stridor. Patient is tachypneic with use of accessory muscles. Gastrointestinal: Abdomen is soft, nontender, nondistended. Positive bowel sounds. No guarding or rigidity. Extremities: No clubbing, cyanosis. Patient has lower extremity edema. No calf tenderness. Neurologic: Cranial nerves 2 through 12 intact grossly. No focal neurological deficits. Speech is normal. Strength is symmetric bilateral upper and lower extremities. Sensation intact to light touc h. Skin: No rashes. Normal skin turgor. Psychiatric: Mood is okay. Affect is flat. Insight and judgment are good. Laboratory Data: WBC 13.9, H and H 12.2 and 36.7, platelets 492. Sodium 136, potassium 4.3, chlorid e 104, CO2 of 26, BUN 18, creatinine 0.85, glucose 96, calcium 9, alkaline phosphatase 120, troponin less than 0.02, albumin 2.6. Blood cultures are pending. Imaging Studies: CT chest, abdomen, and pelvis with contrast shows benign left renal cyst, sigmoid d iverticulosis, tiny air bubble seen in the urinary bladder, possible cystitis or recent instrumentati on. Small right pleural effusion, loculations, positive for right-sided pulmonary emboli, triangular opacity in the right lung laterally, may represent infiltrate, pneumonia, or an area of pulmonary in farct. I personally reviewed chest x-ray; also personally reviewed shows moderate right consolidatio n, likely pneumonia. EKG shows normal sinus rhythm, rate of 65. Assessment And Plan: An 89-year-old female with: 1.Acute pulmonary embolism, right side. We will start on Lovenox 1 mg/kg likely provoked due to vilma ng sedentary for the past couple of weeks. We will obtain echocardiogram urgently to rule out right ventricular strain. Patient may need thrombectomy. Currently, she is not hypotensive or tachycardic . We will consult Pulmonology, Dr. Mercado. He has been made aware of the patient. Patient is not hypoxic at this time. We will provide supplemental oxygen to keep O2 saturations above 93%. We fan l place on continuous pulse oximeter. Patient will likely need anticoagulation for minimum of 4-6 mo nths. If not longer, depending on her workup, however, this seems to be provoked venous thromboembol ism. 2.Pulmonary infarct secondary to above. 3.Pleuritic chest pain secondary to above. 4.Essential hypertension. We will resume home medications as appropriate. 5.Chronic lymphedema of the lower extremities. No signs of deep venous thrombosis. 6.Hypothyroidism. We will continue Synthroid. 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 We will continue with donepezil. No behavi oral disturbance. 8.Major depressive disorder. Continue with SSRI. 9.Gastroesophageal reflux disease. Patient takes Protonix. We will continue home medication. 10.Chronic pain syndrome due to severe osteoarthritis. Patient is on tramadol at home. 11.Deep vein thrombosis prophylaxis. Patient is already on Lovenox. Plan: Admit patient to Med-Surg, place as inpatient. Length of stay greater than 2 midnights. HUGO Voice ID: [id number]
[2019-10-27 05:33] LABS: Basophils % 0.8 % (0-1.3); Hematocrit 32.1 % (36.0-45.0); Lymphocytes % 17.8 % (15.3-44.8); MPV 6.7 fL (7.6-11.3); RBC Red Blood Cell Count 3.85 M/uL (3.86-4.86)
[2019-10-27 05:45] LABS: Albumin 2.2 g/dL (3.4-5.0); Bilirubin Total 0.2 mg/dL (0.2-1.0); Potassium 3.7 mmol/L (3.5-5.1); Protein, Total 6.2 g/dL (6.4-8.2)
[2019-10-27] MEDS ORDERED: INFLUENZA VACCINE (for 3y+) 0.5 ML DOSE IMVAC ONE (06:00)
[2019-10-27] MEDS ORDERED: PNEUMOCOCCAL VACCINE 0.5 ML IMVAC ONE (06:00)
[2019-10-27] MEDS: NA CHLORIDE 0.9% 1,000 ML IV SCH (07:23)
[2019-10-27] MEDS ORDERED: POTASSIUM CL SA 10 MEQ TAB PO ONE (09:00)
[2019-10-27] MEDS ORDERED: ENOXAPARIN 100 MG/ML SYR SQ SCH (09:00)
--- NOTE | 2019-10-27 11:33 | ECHO ---
HEIGHT: 5 ft 7 in WEIGHT: 196 lb 0 oz DATE OF STUDY: 10/27/[address]: Philippe Starkey MD 2-DIMENSIONAL: YES M.MODE: YES DOPPLER: YES COLOR FLOW: YES TDS: PORTABLE: DEFINITY: BUBBLE STUDY: DIAGNOSIS: PE, RULE OUT RIGHT VENTRICULAR STRAIN CARDIAC HISTORY: CATHERIZATION: NO SURGERY: NO PROSTHETIC VALVE: NO PACEMAKER: NO MEASUREMENTS (cm) DIASTOLIC (NORMALS) SYSTOLIC (NORMALS) IVSd 0.9 (0.6-1.2) LA Diam 2.7 (1.9-4.0) LVEF 66% LVIDd 4.2 (3.5-5.7) LVIDs 2.7 (2.0-3.5) %FS 36% LVPWd 1.0 (0.6-1.2) Ao Diam 2.8 (2.0-3.7) 2 DIMENSIONAL ASSESSMENT: RIGHT ATRIUM: NORMAL LEFT ATRIUM: NORMAL RIGHT VENTRICLE: NORMAL LEFT VENTRICLE: NORMAL TRICUSPID VALVE: NORMAL MITRAL VALVE: NORMAL PULMONIC VALVE: NORMAL AORTIC VALVE: NORMAL PERICARDIAL EFFUSION: NONE AORTIC ROOT: NORMAL LEFT VENTRICULAR WALL MOTION: NORMAL DOPPLER/COLOR FLOW: PHYSIOLOGIC TRICUSPID REGURGITAITON. COMMENTS: NORMAL 2-DIMENSIONAL ECHOCARDIOGRAM WITH DOPPLER. TECHNOLOGIST: LAURYN BLAIR
--- NOTE | 2019-10-27 12:44 | P.PN ---
Subjective Date of Service: 10/27/19 Chief Complaint: Shortness of breath and left pleuritic chest pain. Patient states she feels much better today. She reports less pain with breathing. She denies shortness of breath at rest. She does have some dyspnea on exertion. She has been tolerating room air. Physical Examination - Vital Signs Temperature: 97.8 F Blood Pressure: 144/47 Pulse: 59 Respirations: 18 Pulse Ox (%): 95 - Physical Exam General: Alert, In no apparent distress, Oriented x3 HEENT: Mucous membr. moist/pink, Sclerae nonicteric Neck: Supple, JVD not distended Respiratory: Clear to auscultation bilaterally, Normal air movement Cardiovascular: Regular rate/rhythm, Normal S1 S2, Edema (Trace bilateral lower extremity pitting edema) Capillary refill: <2 Seconds Gastrointestinal: Normal bowel sounds, Soft and benign, Non-distended, No tenderness Integumentary: No rashes Neurological: Normal speech, Normal strength at 5/5 x4 extr - Studies Laboratory Data (last 24 hrs) 10/26/19 14:11: Creatinine 0.85 10/26/19 14:11: WBC 13.9 H, Hgb 12.2, Hct 36.7, Plt Count 492 H 10/26/19 14:11: Sodium 136, Potassium 4.3, BUN 18, Creatinine 0.85, Glucose 96, Total Bilirubin 0.3, AST 32, ALT 42, Alkaline Phosphatase 120 H, Lipase 73 Assessment And Plan - Current Problems (Diagnosis) (1) Pulmonary embolism Current Visit: Yes Status: Acute (2) Pulmonary infarction Current Visit: Yes Status: Acute (3) Lymphedema of lower extremity Current Visit: Yes Status: Chronic - Plan Echocardiogram is pending. Her last fall was 1 year ago. Start Eliquis. Follow echocardiogram result Supportive measures-pain medications for pleuritic pain. Incentive spirometry Continue home dose Lasix. Oral antibiotic given pulmonary opacity.
[2019-10-27] MEDS ORDERED: HOME MED [FLUTICASONE 50MCG NASAL SPRAY] NAS SCH (14:30)
[2019-10-27] MEDS: HYDROCODONE/APAP 7.5/325 MG TAB PO PRN ×2 (16:05→21:19)
--- NOTE | 2019-10-27 16:17 | P.CNS ---
Date of Consult: 10/27/19 Reason for Consult: Pulmonary Embolism Chief Complaint: Shortness of breath and left pleuritic chest pain. History of Present Illness: PT is 89 yrs of age AW acute onset Right side dplwurtic chest pin. Denies any fever or chils. No cough. No prior HXof DVT orPE. No recetn surgery. AW PE. No Change SOb for 1 wk Allergies celecoxib [From Celebrex] Allergy (Verified 10/26/19 21:27) Hives/Rash Sulfa (Sulfonamide Antibiotics) [Sulfa(Sulfonamide Antibiotics)] Allergy ( Verified 10/26/19 21:27) Hives/Rash Home Medications: Amitriptyline [Elavil*] 1 tab PO BEDTIME 10/26/19 Ascorbic Acid/Ascorbate Sodium [Vit C-Lyndsay Hips 500 mg Chew Tb] 1,000 mg PO DAILY 10/26/19 B-Complex with Vitamin C [Super B Complex-Vitamin C] 1 tab PO DAILY 10/26/19 Biotin 2 tab PO DAILY 10/26/19 Bupropion HCl [Budeprion Xl] 1 tab PO DAILY 10/26/19 Calcium Phosphate Trib/Vit D3 [Calcium + Vitamin D3 Gummies] 3 tab PO DAILY 06/06 Donepezil HCl [Aricept] 10 mg PO BEDTIME 10/26/19 Esomeprazole Mag Trihydrate [Nexium] 40 mg PO BID 10/26/19 Fluticasone [Flonase 50MCG Nasal [place]*] 1 puff IN DAILY 10/26/19 Folic Acid 1 tab PO DAILY 10/26/19 Furosemide [Lasix*] 20 mg PO DAILY 10/26/19 Levothyroxine [Synthroid*] 1 tab PO 0630 10/26/19 Loratadine [Claritin*] 1 tab PO DAILY 10/26/19 Magnesium Oxide [Magnesium] 3 tab PO DAILY 10/26/19 Memantine HCl/Donepezil HCl [Namzaric 28 mg-10 mg Capsule] 1 tab PO DAILY Mesalamine 2 tab PO DAILY 10/26/19 Multivitamin [Multiple Vitamins] 1 tab PO DAILY 10/26/19 Potassium Chloride [Klor-Con 10] 1 tab PO DAILY 10/26/19 Telmisartan 40 mg PO DAILY 10/26/19 Vitamin E 1 tab PO DAILY 10/26/19 Vits A,C,E/Lutein/Minerals [Ocuvite with Lutein Tablet] 1 tab PO DAILY 10/26/19 traMADol HCL [Ultram*] 50 mg PO DAILY 10/26/19 - Past Medical/Surgical History Diabetic: No -: Chron's disease -: Lympedema of left arm? -: adrenalectomy -: lymph edema -: L knee surgery - Social History Alcohol use: No CD- Drugs: No Caffeine use: Yes Place of Residence: Home Review of Systems 10-point ROS is otherwise unremarkable General: Weakness Respiratory: Pleuritic Pain Physical Examination Temp Pulse Resp BP Pulse Ox 97.8 F 59 18 144/47 H 95 10/27/19 12:44 10/27/19 12:44 10/27/19 12:44 10/27/19 12:44 10/27/19 12:44 General: Alert, Oriented x3 HEENT: Atraumatic Neck: Supple Respiratory: Clear to auscultation bilaterally, Diminished (R side) Cardiovascular: No edema, Regular rate/rhythm - Problems (1) Pulmonary embolism Current Visit: Yes Status: Acute Plan: PT is 89 yrs of age aW acute PW poss pulmonary infarction Doubt pneumonia. PCT is neg. D/C Antibiotics. Treat with Eliquis 10 mg BID for 7 days then 5 mg BID Life long anticoagulation No Hypotension or desaturation. Poss Dischare am. D/C IV fluids. Labs and CT reviewed Qualifiers: Chronicity: acute
--- NOTE | 2019-10-27 16:23 | P.CNS ---
Date of Consult: 10/27/19 Reason for Consult: Pulmonary embolism Chief Complaint: Shortness of breath and left pleuritic chest pain. History of Present Illness: PT AW acute PE. C/o SOb and R sided pleuritic chest pain. Denies ymptms of sepsis. No risk factors for PE. No cough fever or chills. No prior Hxof DVT or PE Allergies celecoxib [From Celebrex] Allergy (Verified 10/26/19 21:27) Hives/Rash Sulfa (Sulfonamide Antibiotics) [Sulfa(Sulfonamide Antibiotics)] Allergy ( Verified 10/26/19 21:27) Hives/Rash Home Medications: Amitriptyline [Elavil*] 1 tab PO BEDTIME 10/26/19 Ascorbic Acid/Ascorbate Sodium [Vit C-Lyndsay Hips 500 mg Chew Tb] 1,000 mg PO DAILY 10/26/19 B-Complex with Vitamin C [Super B Complex-Vitamin C] 1 tab PO DAILY 10/26/19 Biotin 2 tab PO DAILY 10/26/19 Bupropion HCl [Budeprion Xl] 1 tab PO DAILY 10/26/19 Calcium Phosphate Trib/Vit D3 [Calcium + Vitamin D3 Gummies] 3 tab PO DAILY 06/06 Donepezil HCl [Aricept] 10 mg PO BEDTIME 10/26/19 Esomeprazole Mag Trihydrate [Nexium] 40 mg PO BID 10/26/19 Fluticasone [Flonase 50MCG Nasal [place]*] 1 puff IN DAILY 10/26/19 Folic Acid 1 tab PO DAILY 10/26/19 Furosemide [Lasix*] 20 mg PO DAILY 10/26/19 Levothyroxine [Synthroid*] 1 tab PO 0630 10/26/19 Loratadine [Claritin*] 1 tab PO DAILY 10/26/19 Magnesium Oxide [Magnesium] 3 tab PO DAILY 10/26/19 Memantine HCl/Donepezil HCl [Namzaric 28 mg-10 mg Capsule] 1 tab PO DAILY Mesalamine 2 tab PO DAILY 10/26/19 Multivitamin [Multiple Vitamins] 1 tab PO DAILY 10/26/19 Potassium Chloride [Klor-Con 10] 1 tab PO DAILY 10/26/19 Telmisartan 40 mg PO DAILY 10/26/19 Vitamin E 1 tab PO DAILY 10/26/19 Vits A,C,E/Lutein/Minerals [Ocuvite with Lutein Tablet] 1 tab PO DAILY 10/26/19 traMADol HCL [Ultram*] 50 mg PO DAILY 10/26/19 - Past Medical/Surgical History Diabetic: No -: Chron's disease -: adrenalectomy -: lymph edema -: L knee surgery - Social History Alcohol use: No CD- Drugs: No Caffeine use: Yes Place of Residence: Home Review of Systems 10-point ROS is otherwise unremarkable General: Weakness Respiratory: Shortness of Breath Cardiovascular: Chest Pain Physical Examination Temp Pulse Resp BP Pulse Ox 97.8 F 59 18 144/47 H 95 10/27/19 12:44 10/27/19 12:44 10/27/19 12:44 10/27/19 12:44 10/27/19 12:44 General: Alert, Oriented x3 Neck: Supple Respiratory: Clear to auscultation bilaterally, Diminished (R lauren e) Cardiovascular: No edema, Regular rate/rhythm, Normal S1 S2 - Problems (1) Pulmonary embolism Current Visit: Yes Status: Acute Plan: PT is 89 yrs of age AW acute PE. Agree with Eliquis increase dose to 10 mg BID for 7 days then 5 mg BID. Check with pharmacy if Eliquis covvered prior to discharge. NE of sepsis. CT rev. Poss pulmonary infeaction. Can D/C AB Blood cultures contaminant. Labs and CT reviewed. No Hypotension or hypoxemia. Echo normal Poss Dc home am Qualifiers: Chronicity: acute
[2019-10-27] MEDS ORDERED: APIXABAN 5 MG TABLET PO SCH (21:00)
[2019-10-27] MEDS: AMOX/K CLAV 875 MG TAB PO SCH (21:19)
[2019-10-27] MEDS: APIXABAN 5 MG TABLET PO SCH (21:19)
[2019-10-27] MEDS: DONEPEZIL HCL 5 MG TAB PO SCH (21:19)
[2019-10-27] MEDS: PANTOPRAZOLE 40MG TABLET PO SCH (21:21)
[2019-10-27] MEDS: AMITRIPTYLINE 50 MG TAB PO SCH (21:21)
[2019-10-28 04:09] LABS: Absolute Lymphocytes (CBC) 2.3 K/uL (0.7-4.9); Hematocrit 33.6 % (36.0-45.0); Lymphocytes % 18.8 % (15.3-44.8); RBC Red Blood Cell Count 4.02 M/uL (3.86-4.86)
[2019-10-28] MEDS: LEVOTHYROXINE SOD 0.088 MG TAB PO SCH (06:26)
[2019-10-28] MEDS: HYDROCODONE/APAP 7.5/325 MG TAB PO PRN ×3 (06:29→21:09)
--- NOTE | 2019-10-28 08:31 | RAD REPORT ---
EXAM DESCRIPTION: Laureen Single View10/28/2019 6:37 am CLINICAL HISTORY: Chest pain COMPARISON: October 25 FINDINGS: No significant change in a right pulmonary infarction Left lung appears clear of acute infiltrate. The heart is mildly enlarged IMPRESSION: No change in a right pulmonary infarction
[2019-10-28] MEDS: CALCIUM PHOSPHATE TRIB PO SCH (09:00)
[2019-10-28] MEDS: BIOTIN PO SCH (09:00)
[2019-10-28] MEDS: OCUVITE (VIT A,C & E/LUTEIN/MINERAL) TABLET PO SCH (09:00)
[2019-10-28] MEDS: MAGNESIUM OXIDE 400 MG TAB PO SCH (09:00)
[2019-10-28] MEDS: BUPROPION HCL XL 150 MG TAB PO SCH (09:00)
[2019-10-28] MEDS: HOME MED 1 EA UNK (Mesalamine [Mesalamine] 2 TAB) PO SCH (09:00)
[2019-10-28] MEDS: HOME MED 1 EA UNK (Memantine Hcl/Donepezil Hcl [Namzaric 28 Mg-10 Mg Capsule] 1 TAB) PO SCH (09:00)
[2019-10-28] MEDS: VIT D3 PO SCH (09:00)
[2019-10-28] MEDS: POTASSIUM CL SA 10 MEQ TAB PO SCH (09:42)
[2019-10-28] MEDS: MULTIVITAMIN TAB PO SCH (09:42)
[2019-10-28] MEDS: PANTOPRAZOLE 40MG TABLET PO SCH ×2 (09:43→21:11)
[2019-10-28] MEDS: VITAMIN B COMPLEX 1 CAP PO SCH (09:43)
[2019-10-28] MEDS: FUROSEMIDE 20 MG TABLET PO SCH (09:43)
[2019-10-28] MEDS: VALSARTAN 80 MG TAB PO SCH (09:44)
[2019-10-28] MEDS: ASCORBIC ACID 500 MG TABLET PO SCH (09:44)
[2019-10-28] MEDS: FOLIC ACID 1 MG TABLET PO SCH (09:44)
[2019-10-28] MEDS: AMOX/K CLAV 875 MG TAB PO SCH ×2 (09:44→21:11)
[2019-10-28] MEDS: LORATADINE 10 MG TAB PO SCH (09:45)
[2019-10-28] MEDS: VITAMIN E 400 IU CAP PO SCH (09:45)
[2019-10-28] MEDS: APIXABAN 5 MG TABLET PO SCH ×2 (09:45→21:11)
--- NOTE | 2019-10-28 13:22 | P.PN ---
Subjective Date of Service: 10/28/19 Chief Complaint: Shortness of breath and left pleuritic chest pain. Patient has no complaint today. She denies shortness of breath. She reports less pain with breathing. She has been tolerating room air. Physical Examination - Vital Signs Temperature: 98.5 F Blood Pressure: 122/61 Pulse: 56 Respirations: 16 Pulse Ox (%): 97 - Physical Exam General: Alert, In no apparent distress, Oriented x3 HEENT: Mucous membr. moist/pink, Sclerae nonicteric Neck: Supple, JVD not distended Respiratory: Clear to auscultation bilaterally, Normal air movement Cardiovascular: No edema, Regular rate/rhythm, Normal S1 S2 Capillary refill: <2 Seconds Gastrointestinal: Normal bowel sounds, Soft and benign, No tenderness Musculoskeletal: No swelling, No erythema Neurological: Normal speech, Normal strength at 5/5 x4 extr - Studies Microbiology Data (last 24 hrs): 10/26/19 16:00 Blood - Blood Blood Culture Gram Stain - Final Assessment And Plan - Current Problems (Diagnosis) (1) Pulmonary embolism Current Visit: Yes Status: Acute Qualifiers: Chronicity: acute (2) Pulmonary infarction Current Visit: Yes Status: Acute (3) Lymphedema of lower extremity Current Visit: Yes Status: Chronic - Plan Echocardiogram is pending. Her last fall was 1 year ago. Continue Eliquis. Echocardiogram is unremarkable. Supportive measures-pain medications for pleuritic pain. Incentive spirometry Continue home dose Lasix. Oral antibiotic given pulmonary opacity. 1 blood culture bottle grew Gram positive cocci in clusters. Repeat blood culture is pending.
[2019-10-28] MEDS: DONEPEZIL HCL 5 MG TAB PO SCH (21:11)
[2019-10-28] MEDS: AMITRIPTYLINE 50 MG TAB PO SCH (21:11)
[2019-10-29] MEDS: LEVOTHYROXINE SOD 0.088 MG TAB PO SCH (05:52)
[2019-10-29] MEDS: VITAMIN B COMPLEX 1 CAP PO SCH (08:22)
[2019-10-29] MEDS: PANTOPRAZOLE 40MG TABLET PO SCH (08:22)
[2019-10-29] MEDS: MULTIVITAMIN TAB PO SCH (08:22)
[2019-10-29] MEDS: OCUVITE (VIT A,C & E/LUTEIN/MINERAL) TABLET PO SCH (08:22)
[2019-10-29] MEDS: MAGNESIUM OXIDE 400 MG TAB PO SCH (08:23)
[2019-10-29] MEDS: ASCORBIC ACID 500 MG TABLET PO SCH (08:23)
[2019-10-29] MEDS: FUROSEMIDE 20 MG TABLET PO SCH (08:24)
[2019-10-29] MEDS: FOLIC ACID 1 MG TABLET PO SCH (08:24)
[2019-10-29] MEDS: VALSARTAN 80 MG TAB PO SCH (08:24)
[2019-10-29] MEDS: LORATADINE 10 MG TAB PO SCH (08:24)
[2019-10-29] MEDS: AMOX/K CLAV 875 MG TAB PO SCH (08:24)
[2019-10-29] MEDS: POTASSIUM CL SA 10 MEQ TAB PO SCH (08:25)
[2019-10-29 08:34] VITALS: O2SAT 97
[2019-10-29] MEDS: HOME MED 1 EA UNK (Memantine Hcl/Donepezil Hcl [Namzaric 28 Mg-10 Mg Capsule] 1 TAB) PO SCH (09:00)
[2019-10-29] MEDS: CALCIUM PHOSPHATE TRIB PO SCH (09:00)
[2019-10-29] MEDS: HOME MED 1 EA UNK (Mesalamine [Mesalamine] 2 TAB) PO SCH (09:00)
[2019-10-29] MEDS: VIT D3 PO SCH (09:00)
[2019-10-29] MEDS: BIOTIN PO SCH (09:00)
[2019-10-29] MEDS: BUPROPION HCL XL 150 MG TAB PO SCH (09:33)
[2019-10-29] MEDS: APIXABAN 5 MG TABLET PO SCH (09:33)
[2019-10-29] MEDS: VITAMIN E 400 IU CAP PO SCH (09:34)
[2019-10-29 11:59] VITALS: BP 114/57; TEMP 97.1
[2019-10-29] MEDS: HYDROCODONE/APAP 7.5/325 MG TAB PO PRN (12:08)
--- NOTE | 2019-10-29 12:55 | P.DS ---
Admission Date: 10/26/19 Discharge Date: 10/29/19 Disposition: DC HOME/HOME HEALTH CARE Discharge Condition: GOOD Reason for Admission: Shortness of breath and left pleuritic chest pain. Consultations: Pulmonary-Dr. Mercado Procedures: None - Problems (1) Pulmonary embolism Current Visit: Yes Status: Acute Qualifiers: Chronicity: acute (2) Pulmonary infarction Current Visit: Yes Status: Acute (3) Lymphedema of lower extremity Current Visit: Yes Status: Chronic Brief History of Present Illness: 89-year-old woman with a history of Crohn's disease, hypertension presents to the ED with a complaint of sudden onset of shortness of breath and pleuritic chest pain. Imaging done in the ED revealed presence of pulmonary embolism and pulmonary infarct. She had mild leukocytosis with WBC count of 13,000. Patient was admitted for further management. Hospital Course: Patient admitted to the medical floor and started on full-dose Lovenox and empiric antibiotics. All cultures yielded no growth. Patient's symptoms improved with treatment. She was transitioned from full-dose Lovenox to oral Eliquis which she tolerated. Patient was seen and evaluated by pulmonary-Rogelio Shay. She was seen and evaluated by physical therapy, patient was independently ambulatory and needed no assistance with ambulation. She is deemed clinically stable for discharge today. Fall precautions advised. She is discharged with home health for physical therapy and home fall risk assessment. Vital Signs/Physical Exam: Temp Pulse Resp BP Pulse Ox 97.1 F 73 16 114/57 L 95 10/29/19 11:58 10/29/19 11:58 10/29/19 12:08 10/29/19 11:58 10/29/19 12:08 General: Alert, In no apparent distress, Oriented x3 HEENT: Mucous membr. moist/pink, Sclerae nonicteric Neck: Supple, JVD not distended Respiratory: Clear to auscultation bilaterally, Normal air movement Cardiovascular: No edema, Regular rate/rhythm, Normal S1 S2 Gastrointestinal: Normal bowel sounds, Soft and benign, No tenderness Musculoskeletal: No swelling, No erythema Integumentary: No rashes, No erythema Neurological: Normal speech, Normal strength at 5/5 x4 extr Laboratory Data at Discharge: WBC 12.4 K/uL (4.3-10.9) H 10/28/19 03:41 Hgb 11.0 g/dL (12.0-15.0) L 10/28/19 03:41 Hct 33.6 % (36.0-45.0) L 10/28/19 03:41 Plt Count 440 K/uL (152-406) H 10/28/19 03:41 Sodium 137 mmol/L (136-145) 10/28/19 03:41 Potassium 4.0 mmol/L (3.5-5.1) 10/28/19 03:41 BUN 13 mg/dL (7-18) 10/28/19 03:41 Creatinine 0.73 mg/dL (0.55-1.3) 10/28/19 03:41 Glucose 90 mg/dL (74-106) 10/28/19 03:41 Magnesium 2.3 mg/dL (1.8-2.4) 10/27/19 03:21 Total Bilirubin 0.2 mg/dL (0.2-1.0) 10/27/19 05:21 AST 23 U/L (15-37) 10/27/19 05:21 ALT 32 U/L (12-78) 10/27/19 05:21 Alkaline Phosphatase 80 U/L (45-117) 10/27/19 05:21 Lipase 73 U/L (73-393) 10/26/19 14:11 Home Medications: Amitriptyline [Elavil*] 1 tab PO BEDTIME 10/26/19 Ascorbic Acid/Ascorbate Sodium [Vit C-Lyndsay Hips 500 mg Chew Tb] 1,000 mg PO DAILY 10/26/19 B-Complex with Vitamin C [Super B Complex-Vitamin C] 1 tab PO DAILY 10/26/19 Biotin 2 tab PO DAILY 10/26/19 Bupropion HCl [Budeprion Xl] 1 tab PO DAILY 10/26/19 Calcium Phosphate Trib/Vit D3 [Calcium + Vitamin D3 Gummies] 3 tab PO DAILY 06/06 Donepezil HCl [Aricept] 10 mg PO BEDTIME 10/26/19 Esomeprazole Mag Trihydrate [Nexium] 40 mg PO BID 10/26/19 Fluticasone [Flonase 50MCG Nasal [place]*] 1 puff IN DAILY 10/26/19 Folic Acid 1 tab PO DAILY 10/26/19 Furosemide [Lasix*] 20 mg PO DAILY 10/26/19 Levothyroxine [Synthroid*] 1 tab PO 0630 10/26/19 Loratadine [Claritin*] 1 tab PO DAILY 10/26/19 Magnesium Oxide [Magnesium] 3 tab PO DAILY 10/26/19 Memantine HCl/Donepezil HCl [Namzaric 28 mg-10 mg Capsule] 1 tab PO DAILY Mesalamine 2 tab PO DAILY 10/26/19 Multivitamin [Multiple Vitamins] 1 tab PO DAILY 10/26/19 Potassium Chloride [Klor-Con 10] 1 tab PO DAILY 10/26/19 Telmisartan 40 mg PO DAILY 10/26/19 Vitamin E 1 tab PO DAILY 10/26/19 Vits A,C,E/Lutein/Minerals [Ocuvite with Lutein Tablet] 1 tab PO DAILY 10/26/19 traMADol HCL [Ultram*] 50 mg PO DAILY 10/26/19 Apixaban [Eliquis] 5 mg PO BID #60 tablet 10/27/19 Amox/Clavulanate [Augmentin 875-125 Tab*] 875 mg PO BID #10 tab 10/29/19 Apixaban [Eliquis] 5 mg PO BID #66 tablet 10/29/19 New Medications: Amox/Clavulanate [Augmentin 875-125 Tab*] 875 mg PO BID #10 tab Apixaban [Eliquis] 5 mg PO BID #60 tablet Apixaban [Eliquis] 5 mg PO BID #66 tablet Diet: AHA Activity: Fall precautions Followup: Joaquin Mercado MD [ACTIVE - CAN ADMIT] - (2 weeks.) Time spent managing pt's care (in minutes): 45
--- NOTE | 2019-10-29 13:12 | P.PN ---
Subjective Date of Service: 10/29/19 Chief Complaint: Pulmonary embolism Subjective: Improving (Patient is improving doing well pleuritic pain has improved denies any fever or chills) Review of Systems Unremarkable Physical Examination - Vital Signs Temperature: 97.1 F Blood Pressure: 114/57 Pulse: 73 Respirations: 16 Pulse Ox (%): 95 - Physical Exam General: Alert, Oriented x3 Respiratory: Clear to auscultation bilaterally Cardiovascular: No edema, Normal S1 S2 - Studies Microbiology Data (last 24 hrs): 10/26/19 16:00 Blood - Blood Blood Culture Gram Stain - Final Assessment & Plan - Problems (Diagnosis) (1) Pulmonary embolism Current Visit: Yes Status: Acute Plan: Patient admitted with pulmonary embolism stable to be discharged home Eliquis 10 mg twice a day for 7 days then 5 mg twice a day for at least 6 months Dc antibiotics chemistries unremarkable follow with me in 2 weeks 20 lifelong anticoagulation normal echo Qualifiers: Chronicity: acute
== END 2019-10-29 14:45 | disposition home health service (06) | DRG 176 ==
LOC: ER 12:47 → ERHOLD 16:00 → UNDOADMIN 16:00 → 4TH 20:03 → ERHOLD 20:03 → UNDOADMIN 20:03 → 4TH 20:09
PROVIDERS: ADMIT Family Medicine; ATTEND Family Medicine
DX: I26.99 Other pulmonary embolism without acute cor pulmonale (principal); K50.90 Crohn's disease, unspecified, without complications; I89.0 Lymphedema, not elsewhere classified; I10 Essential (primary) hypertension; K21.9 Gastro-esophageal reflux disease without esophagitis; E78.5 Hyperlipidemia, unspecified; E03.9 Hypothyroidism, unspecified; Z88.2 Allergy status to sulfonamides; Z23 Encounter for immunization
CPT/HCPCS: 36415; 71045; 71260; 74177; 80048; 80053; 80076; 83690; 83735; 83880; 84145; 84484; 85025; 87040; 87077; 87186; 87205; 90471; 90670; 93005; 93306; 94760; 96365; 96372; 96375; 97161; 99285; J0456; J0696; J1650; J2270; J2405; J7030; Q2035; Q9967

== ENCOUNTER 2020-06-05 11:58 | Emergency (ER) | payer MEDICARE, OTHER ==
--- OUTSIDE RECORDS SUMMARY | 2020-06-05 11:59 | XMS REPORT | Continuity of Care Document ---
:1930 Author Organization [facility] t Address [address] [place] [address] Care Team Providers Name Role Phone Marielle Steele DO Attending Clinician Salbador CRAREON Attending Clinician Problems This patient has no known problems. Allergies, Adverse Reactions, Alerts This patient has no known allergies or adverse reactions. Medications This patient has no known medications. Procedures This patient has no known procedures. Encounters Start End Encounter Admission Attending Care Care Encounter Source Date/Time Date/Time Type Type Clinicians Facility Department ID 2019-11-04 2019-11-04 Emergency Cedric [facility] [id number] 16:36:29 16:58:00 Liz Lala [id number] [place] [id number] [place] [id number] 2019-04-28 2019-04-28 Office RADHA Siu [id number] 14:13:08 14:44:11 Visit Roshan Lala [id number] [place] [id number] [facility] [id number] [facility] 0[facility] Building Results This patient has no known results.
--- NOTE | 2020-06-05 14:03 | RAD REPORT ---
EXAM DESCRIPTION: CT - Head Brain Wo Cont - 06/05/2020 1:53 pm CLINICAL HISTORY: DIZZINESS, presyncope COMPARISON: Head Brain Wo Cont dated 12/08/2017 TECHNIQUE: Axial 5 mm thick images of the head were obtained without IV contrast. All CT scans are performed using dose optimization technique as appropriate and may include automated exposure control or mA/KV adjustment according to patient size. FINDINGS: No intracranial hemorrhage, mass, edema or shift of mid-line structures. No acute infarcti on changes seen. No cortical edema or sulcal effacement. Moderate atrophy changes are present. Chroni c ischemic changes are relatively mild for age. Ventricles are in proportion. Intracranial findings a re similar to 2008. Mastoid air cells and visualized portions of the paranasal sinuses are clear. No acute bony findings. IMPRESSION: No acute CT Head finding. Above detailed findings are stable from 2018.
[2020-06-05] MEDS ORDERED: MECLIZINE HCL 12.5 MG TAB ONE (15:07)
[2020-06-05 15:28] LABS: Absolute Lymphocytes (CBC) 1.6 K/uL (0.7-4.9); Basophils % 0.9 % (0-1.3); Hematocrit 41.8 % (36.0-45.0); Lymphocytes % 27.7 % (15.3-44.8); MPV 7.8 fL (7.6-11.3); RBC Red Blood Cell Count 4.87 M/uL (3.86-4.86)
[2020-06-05 15:30] LABS: Protime INR 1.01
[2020-06-05 15:44] LABS: ALT/SGPT 26 U/L (12-78); AST/SGOT 20 U/L (15-37); Albumin 3.3 g/dL (3.4-5.0); Alkaline Phosphatase 66 U/L (45-117); BUN Blood Urea Nitrogen 20 mg/dL (7-18); Bicarbonate 28 mmol/L (21-32); Bilirubin Direct < 0.1 mg/dL (0-0.2); Bilirubin Total 0.3 mg/dL (0.2-1.0); Glucose Level 95 mg/dL (74-106); Magnesium 2.4 mg/dL (1.8-2.4); Potassium 4.1 mmol/L (3.5-5.1); Protein, Total 6.8 g/dL (6.4-8.2); Sodium Level 142 mmol/L (136-145); Troponin (Emerg Dept Use Only) < 0.02 ng/mL (0.0-0.045)
--- NOTE | 2020-06-05 15:46 | RAD REPORT ---
EXAM DESCRIPTION: RAD - Chest Single View - 06/05/2020 3:14 pm CLINICAL HISTORY: dizziness, abnormal EKG COMPARISON: October 2019 TECHNIQUE: AP portable chest image was obtained 06/05/2020 3:14 pm . FINDINGS: Lung volumes are low. No peripheral mass or consolidation. Interstitial pattern is not nahun talha different from comparison when adjusting for inspiratory and technique differences. Minimal xena a or infiltrate could be masked. Patient likely has a minimal focus of scarring in the lateral right mid right lung field has remnant from a pulmonary hemorrhage or infarction detailed on the October [facility] study. Heart and vasculature are normal. No pneumothorax. Costophrenic angle blunting is seen believed to b e the affects of body habitus and portable technique. Minimal left pleural effusion not excluded. No acute bony abnormality seen. No acute aortic findings suspected. IMPRESSION: Limited shallow inspiration film without significant edema, failure or volume overload f inding. No acute infiltrate suspected.
--- NOTE | 2020-06-05 16:35 | ER ---
Nurse's Notes [facility] Name: Eileen Carrero Age: 89 yrs Sex: Female : 1930 Arrival Date: 06/05/2020 Time: 12:04 Bed 6 Private MD: Diagnosis: Dizziness and giddiness Presentation: 06/05 12:10 Chief complaint: Patient states: sent by Dr Bartlett for abnormal EKG. Went to see him sv today because she has been dizzy and "foggy headed" since Friday, she placed a Scopalamine patch on Friday and another one today but was removed by the office. Bp was 102/58 in office. c/o SOB and generalized weakness. Coronavirus screen: Client denies travel out of the [place] in the last 14 days. shortness of breath, Client presents with at least one sign or symptom that may indicate coronavirus-19. Standard/surgical mask placed on the client. Provider contacted for isolation considerations. Ebola Screen: No symptoms or risks identified at this time. Risk Assessment: Do you want to hurt yourself or someone else? Patient reports no desire to harm self or others. Onset of symptoms was June 02, 2020. 12:10 Method Of Arrival: Wheelchair sv 12:10 Acuity: LEE 3 sv 12:14 Initial Sepsis Screen: Does the patient meet any 2 criteria? No. Patient's initial sv sepsis screen is negative. Does the patient have a suspected source of infection? No. Patient's initial sepsis screen is negative. Triage Assessment: 12:10 General: Appears in no apparent distress. comfortable, Behavior is calm, cooperative, sv appropriate for age. Pain: Denies pain. Neuro: Level of Consciousness is awake, alert, obeys commands, Oriented to person, place, time, situation, Speech is normal, Reports dizziness. Respiratory: Respiratory effort is even, unlabored. Historical: - Allergies: 12:14 Celecoxib; sv 12:14 Sulfa (Sulfonamide Antibiotics); sv 12:14 Tape; sv - PMHx: 12:14 Arthritis; Crohn's; Depression; Hyperlipidemia; Hypertension; Hypothyroidism; Vit D sv deficiency; Diverticulitis; High Cholesterol; Osteoarthritis; - PSHx: 12:14 Knee surgery; sv - Immunization history:: Adult Immunizations up to date. - Social history:: Smoking status: Patient denies any tobacco usage or history of. Screenin:37 Abuse screen: Denies threats or abuse. Nutritional screening: No deficits noted. em Tuberculosis screening: No symptoms or risk factors identified. Fall Risk None identified. Assessment: 14:37 General: Appears in no apparent distress. comfortable, Behavior is calm, cooperative, em appropriate for age, Denies fever. Pain: Denies pain. Neuro: Level of Consciousness is awake, alert, obeys commands, Oriented to person, place, time, situation, Appropriate for age Reports dizziness, since last Friday Denies weakness headache. Cardiovascular: Capillary refill < 3 seconds Patient's skin is warm and dry. Rhythm is sinus rhythm. Respiratory: Airway is patent Respiratory effort is even, unlabored, Respiratory pattern is regular, symmetrical. GI: Patient currently denies nausea, vomiting. Derm: Skin is intact, is healthy with good turgor, Skin is pink, warm \\T\\ dry. Musculoskeletal: Capillary refill < 3 seconds, Range of motion: intact in all extremities. 15:31 Reassessment: Patient appears in no apparent distress at this time. Patient and/or em family updated on plan of care and expected duration. Pain level reassessed. Patient is alert, oriented x 3, equal unlabored respirations, skin warm/dry/pink. 16:22 Reassessment: Patient appears in no apparent distress at this time. provider at em bedside, states she feels comfortable going home Patient states feeling better. Patient states symptoms have improved. Vital Signs: 12:14 BP 122 / 55; Pulse 77; Resp 16; Temp 98.8; Pulse Ox 99% ; Weight 91.63 kg; Height 5 ft. sv 7 in. (170.18 cm); 15:00 BP 105 / 95; Pulse 62; Resp 18; Pulse Ox 100% on R/A; em 16:15 BP 108 / 53 Supine; Pulse 76; em 16:15 BP 130 / 66 Sitting; Pulse 68; em 16:15 BP 125 / 67 Standing; Pulse 70; em 12:14 Body Mass Index 31.64 (91.63 kg, 170.18 cm) sv NIH Stroke Scale Scores: 14:52 NIHSS Score: 0 cp ED Course: 12:04 Patient arrived in ED. ds1 12:10 Arm band placed on. sv 12:12 Triage completed. sv 14:00 CT Head Brain wo Cont Sent. sv 14:23 Anjel Lemos, RN is Primary Nurse. em 14:32 Sanchez Santa NP is PHCP. pm1 14:32 Sam Brumfield MD is Attending Physician. pm1 14:33 PHCP role handed off by Sanchez Santa NP cp 14:33 Yo Ambrocio PA is PHCP. cp 14:37 Patient has correct armband on for positive identification. Bed in low position. Call em light in reach. Adult w/ patient. panel monitor on. Pulse ox on. NIBP on. 14:37 EKG done, by ED staff, reviewed by Sam Brumfield MD. em 15:00 Initial lab(s) drawn, by va, sent to lab. Inserted saline lock: 20 gauge in right em antecubital area, using aseptic technique. Blood collected. 15:53 Basic Metabolic Panel Sent. sv 15:53 CBC with Diff Sent. sv 15:53 LFT's Sent. sv 15:53 PT-INR Sent. sv 15:53 Magnesium Sent. sv 15:53 Troponin (emerg Dept Use Only) Sent. sv 15:53 XRAY Chest (1 view) Sent. sv 16:49 No provider procedures requiring assistance completed. IV discontinued, intact, em bleeding controlled, No redness/swelling at site. Pressure dressing applied. Administered Medications: 14:55 Drug: Meclizine 25 mg Route: PO; em 16:29 Follow up: Response: No adverse reaction; Marked relief of symptoms em 16:29 Not Given (Physician Discretion): NS 0.9% 250 ml IV at bolus once em Outcome: 16:34 Discharge ordered by . cp 16:49 Discharged to home via wheelchair. em 16:49 Condition: improved 16:49 Discharge instructions given to patient, Instructed on discharge instructions, follow up and referral plans. medication usage, Demonstrated understanding of instructions, follow-up care, medications, Prescriptions given X 1. 16:50 Patient left the ED. em NIH Stroke Scale - NIH Stroke Score Date: 06/05/2020 Time: 14:52 Total Score = 0 1a. Level of Consciousness (LOC) - 0(Alert) 1b. Level of Consciousness (LOC) (Year \\T\\ Age) - 0(Both) 1c. LOC Commands (Open \\T\\ Closes Eyes/Assistant Chief Nursing Officer) - 0(Both) 2. Best Gaze (Lateral Gaze Paresis) - 0(Normal) 3. Visual Field Loss - 0(No visual loss) 4. Facial Palsy - 0(Normal) 5a. Left Arm: Motor (10-second hold) - 0(No drift) 5b. Right Arm: Motor (10-second hold) - 0(No drift) 6a. Left Leg: Motor (5-second hold - always test supine) - 0(No drift) 6b. Right Leg: Motor (5-second hold - always test supine) - 0(No drift) 7. Limb Ataxia (finger/nose \\T\\ heel/galloway - test with eyes open) - 0(Absent) 8. Sensory Loss (pinprick arms/legs/face) - 0(Normal) 9. Best Language: Aphasia (description/naming/reading) - 0(No aphasia) 10. Dysarthria (speech clarity - read or repeat words) - 0(Normal) 11. Extinction and Inattention (visual/tactile/auditory/spatial/personal) - 0(No abnormality) Initials: cp Signatures: Nica Jones RN RN sv Munoz, Edgar, RN RN em Sanford, Demi ds1 Yo Ambrocio PA PA cp Sanchez Santa, MG LOW PRESSURE FIRER pm1 Corrections: (The following items were deleted from the chart) 12:16 12:14 Pulse 77bpm; Resp 16bpm; Pulse Ox 99%; Temp 98.8F; 91.63 kg; Height 5 ft. sv 7 in.; BMI: 31.6; sv
--- NOTE | 2020-06-05 16:35 | EDPHYS ---
Physician Documentation [facility] Name: Eileen Carrero Age: 89 yrs Sex: Female : 1930 Arrival Date: 06/05/2020 Time: 12:04 Bed 6 Private MD: ED Physician Sam Brumfield HPI: 06/05 14:44 This 89 yrs old Female presents to ER via Wheelchair with complaints of Sent cp By Dr Bartlett- Abnormal EKG. 14:45 The patient presents with dizziness, lightheadedness. Onset: The symptoms/episode cp began/occurred 3 day(s) ago. 14:45 Modifying factors: the symptoms are aggravated by standing up. Associated signs and cp symptoms: Pertinent negatives: abdominal pain, blurred vision, chest pain, confusion, diaphoresis, focal weakness, head injury, headache, nausea, near-syncope, palpitations, syncope, vomiting. Patient's baseline: Neuro: alert and fully oriented, Motor: no deficits, Ambulation: walks with assist only, uses walker, Speech: normal, The patient has a previous history of vertigo. Historical: - Allergies: 12:14 Celecoxib; sv 12:14 Sulfa (Sulfonamide Antibiotics); sv 12:14 Tape; sv - PMHx: 12:14 Arthritis; Crohn's; Depression; Hyperlipidemia; Hypertension; Hypothyroidism; Vit D sv deficiency; Diverticulitis; High Cholesterol; Osteoarthritis; - PSHx: 12:14 Knee surgery; sv - Immunization history:: Adult Immunizations up to date. - Social history:: Smoking status: Patient denies any tobacco usage or history of. ROS: 14:48 Constitutional: Negative for body aches, chills, fever, poor PO intake. cp 14:48 Eyes: Negative for injury, pain, redness, and discharge. cp 14:48 ENT: Negative for ear pain, sore throat, difficulty swallowing, difficulty handling secretions. 14:48 Neck: Negative for pain with movement, pain at rest. 14:48 Cardiovascular: Negative for chest pain, edema, palpitations. 14:48 Respiratory: Negative for cough, shortness of breath, wheezing. 14:48 Abdomen/GI: Negative for abdominal pain, nausea, vomiting, and diarrhea, black/tarry stool, rectal bleeding. 14:48 Back: Negative for pain at rest, pain with movement. 14:48 : Negative for urinary symptoms. 14:48 Neuro: Positive for dizziness, Negative for altered mental status, loss of consciousness, syncope, weakness. 14:48 All other systems are negative. Exam: 14:50 ECG was reviewed by the Attending Physician. cp 14:55 Constitutional: The patient appears in no acute distress, alert, awake, comfortable, cp non-diaphoretic, non-toxic, well developed, well nourished. 14:55 Head/Face: Normocephalic, atraumatic. cp 14:55 Eyes: Periorbital structures: appear normal, Pupils: equal, round, and reactive to light and accomodation, Extraocular movements: intact throughout, Conjunctiva: normal, no exudate, no injection, Sclera: no appreciated abnormality, Lids and lashes: appear normal, bilaterally. 14:55 ENT: External ear(s): are unremarkable, Ear canal(s): are normal, TM's: dullness, bilaterally, Nose: is normal, Posterior pharynx: Airway: no evidence of obstruction, patent. 14:55 Neck: ROM/movement: is normal, is supple, without pain, no range of motions limitations. 14:55 Chest/axilla: Inspection: normal, Palpation: is normal, no crepitus, no tenderness. 14:55 Cardiovascular: Rate: normal, Rhythm: regular, Edema: is not appreciated, JVD: is not appreciated. 14:55 Respiratory: the patient does not display signs of respiratory distress, Respirations: normal, no use of accessory muscles, no retractions, labored breathing, is not present, Breath sounds: are clear throughout, no decreased breath sounds, no stridor, no wheezing. 14:55 Abdomen/GI: Inspection: abdomen appears normal, Palpation: abdomen is soft and non-tender, in all quadrants. 14:55 Back: pain, is absent, ROM is normal. 14:55 Neuro: Orientation: to person, place \T\ time. Mentation: is normal, Cerebellar function: Romberg testing is negative, normal finger to nose testing, heel to galloway testing is normal, Motor: moves all fours, strength is normal, Sensation: is normal. Vital Signs: 12:14 BP 122 / 55; Pulse 77; Resp 16; Temp 98.8; Pulse Ox 99% ; Weight 91.63 kg; Height 5 ft. sv 7 in. (170.18 cm); 15:00 BP 105 / 95; Pulse 62; Resp 18; Pulse Ox 100% on R/A; em 16:15 BP 108 / 53 Supine; Pulse 76; em 16:15 BP 130 / 66 Sitting; Pulse 68; em 16:15 BP 125 / 67 Standing; Pulse 70; em 12:14 Body Mass Index 31.64 (91.63 kg, 170.18 cm) sv NIH Stroke Scale Scores: 14:52 NIHSS Score: 0 cp MDM: 14:36 Patient medically screened. cp 16:30 Data reviewed: vital signs, nurses notes, lab test result(s), EKG, radiologic studies, cp plain films. 16:33 Test interpretation: by ED physician or midlevel provider: ECG, chest xray negative for cp infiltrates. Counseling: I had a detailed discussion with the patient and/or guardian regarding: the historical points, exam findings, and any diagnostic results supporting the discharge/admit diagnosis, lab results, radiology results, the need for outpatient follow up, a family practitioner, to return to the emergency department if symptoms worsen or persist or if there are any questions or concerns that arise at home. Refusal of service: The patient/guardian displays adequate decision making capability and despite a detailed discussion of alternatives, benefits, risks, and consequences refuses: Admission to the hospital for further work-up and treatment. 06/05 14:44 Order name: Basic Metabolic Panel cp 06/05 14:44 Order name: CBC with Diff cp 06/05 14:44 Order name: LFT's cp 06/05 14:44 Order name: Magnesium cp 06/05 14:44 Order name: PT-INR cp 06/05 14:44 Order name: Troponin (emerg Dept Use Only) cp 06/05 13:31 Order name: CT Head Brain wo Cont sv 06/05 15:32 Order name: CBC with Automated Diff; Complete Time: 16:10 EDMS 06/05 16:10 Interpretation: Normal except: RBC 4.87. cp 06/05 15:35 Order name: Protime (+INR); Complete Time: 16:10 EDMS 06/05 15:44 Order name: Basic Metabolic Panel; Complete Time: 16:10 EDMS 06/05 16:10 Interpretation: Normal except: BUN 20; GFR 58. cp 06/05 15:44 Order name: Liver (Hepatic) Function; Complete Time: 16:10 EDMS 06/05 16:11 Interpretation: Normal except: ALB 3.3; A/G 0.9. 06/05 15:44 Order name: Troponin (Emerg Dept Use Only); Complete Time: 16:10 EDMS 06/05 15:44 Order name: Magnesium; Complete Time: 16:10 EDMS 06/05 14:05 Order name: CT; Complete Time: 14:35 EDMS 06/05 14:36 Interpretation: Report reviewed. 06/05 14:44 Order name: XRAY Chest (1 view) 06/05 14:44 Order name: EKG; Complete Time: 14:46 06/05 14:44 Order name: Cardiac monitoring; Complete Time: 15:03 06/05 14:44 Order name: EKG - Nurse/Tech; Complete Time: 14:47 06/05 14:44 Order name: IV Saline Lock; Complete Time: 15:03 06/05 14:44 Order name: Labs collected and sent; Complete Time: 14:47 06/05 14:44 Order name: O2 Per Protocol; Complete Time: 14:47 06/05 14:44 Order name: O2 Sat Monitoring; Complete Time: 14:47 06/05 14:54 Order name: Orthostatics; Complete Time: 16:29 06/05 15:47 Order name: RAD; Complete Time: 16:10 EDMS EC:50 Rate is 62 beats/min. Rhythm is regular. VT interval is prolonged at 220 msec. QRS cp interval is normal. QT interval is normal. No Q waves. Interpreted by me. Reviewed by me. Administered Medications: 14:55 Drug: Meclizine 25 mg Route: PO; em 16:29 Follow up: Response: No adverse reaction; Marked relief of symptoms em 16:29 Not Given (Physician Discretion): NS 0.9% 250 ml IV at bolus once em Disposition: 06/06 11:04 Co-signature as Attending Physician, Sam Brumfield MD I agree with the assessment and kdr plan of care. Disposition: 06/05/20 16:34 Discharged to Home. Impression: Dizziness and giddiness. - Condition is Stable. - Discharge Instructions: Dizziness. - Prescriptions for Meclizine 25 mg Oral Tablet - take 1 tablet by ORAL route every 8 hours As needed; 30 tablet. - Medication Reconciliation Form, Thank You Letter, Antibiotic Education, Prescription Opioid Use form. - Follow up: Private Physician; When: 1 - 2 days; Reason: Recheck today's complaints. - Problem is new. - Symptoms have improved. NIH Stroke Scale - NIH Stroke Score Date: 06/05/2020 Time: 14:52 Total Score = 0 1a. Level of Consciousness (LOC) - 0(Alert) 1b. Level of Consciousness (LOC) (Year \T\ Age) - 0(Both) 1c. LOC Commands (Open \T\ Closes Eyes/Sports Broadcaster) - 0(Both) 2. Best Gaze (Lateral Gaze Paresis) - 0(Normal) 3. Visual Field Loss - 0(No visual loss) 4. Facial Palsy - 0(Normal) 5a. Left Arm: Motor (10-second hold) - 0(No drift) 5b. Right Arm: Motor (10-second hold) - 0(No drift) 6a. Left Leg: Motor (5-second hold - always test supine) - 0(No drift) 6b. Right Leg: Motor (5-second hold - always test supine) - 0(No drift) 7. Limb Ataxia (finger/nose \T\ heel/galloway - test with eyes open) - 0(Absent) 8. Sensory Loss (pinprick arms/legs/face) - 0(Normal) 9. Best Language: Aphasia (description/naming/reading) - 0(No aphasia) 10. Dysarthria (speech clarity - read or repeat words) - 0(Normal) 11. Extinction and Inattention (visual/tactile/auditory/spatial/personal) - 0(No abnormality) Initials: cp Signatures: Dispatcher [employer] EDNica Brantley RN RN Sam Brumfield MD MD kdr Anjel Lemos RN RN em Yo Ambrocio PA PA cp Corrections: (The following items were deleted from the chart) 06/05 16:11 16:11 ALB 3.3; A/G 0.9. cp cp 16:30 14:44 Urine Dipstick-Ancillary ordered. cp em 16:50 16:34 06/05/2020 16:34 Discharged to Home. Impression: Dizziness and giddiness. em Condition is Stable. Forms are Medication Reconciliation Form, Thank You Letter, Antibiotic Education, Prescription Opioid Use. Follow up: Private Physician; When: 1 - 2 days; Reason: Recheck today's complaints. Problem is new. Symptoms have improved. cp 06/06 07:21 06/05 14:45 Associated signs and symptoms: Pertinent negatives: abdominal pain, cp blurred vision, chest pain, confusion, diaphoresis, focal weakness, head injury, headache, nausea, near-syncope, palpitations, shortness of breath, syncope, vomiting, cp
[2020-06-05 18:57] VITALS: TEMP 98.8
[2020-06-05 18:59] VITALS: O2SAT 100
[2020-06-05 19:01] VITALS: BP 125/67
--- NOTE | 2020-06-06 16:10 | EKG ---
Test Date: 2020-06-05 Test Time: 14:37:07 Lehr Cutter: JAY MEASUREMENT RESULTS: Intervals: Rate: 62 ID: [id number] QRSD: 100 QT: 432 QTc: 438 [place]: P: 49 ID: [id number] QRS: 48 T: 67 INTERPRETIVE STATEMENTS: Sinus rhythm with 1st degree AV block Otherwise normal ECG Compared to ECG 10/26/2019 14:37:46 First degree AV block now present Electronically Signed On 06-06-20 16:08:15 CDT by Thom Mcdaniel
== END 2020-06-05 16:50 | disposition home or self-care (01) ==
LOC: ER 11:58
DX: R42 Dizziness and giddiness (principal); R29.700 NIHSS score 0; Z88.2 Allergy status to sulfonamides; Z88.8 Allergy status to other drugs, medicaments and biological substances
CPT/HCPCS: 36415; 70450; 71045; 80048; 80076; 83735; 84484; 85025; 85610; 93005; 99285